=== PATIENT | male | born 1955 | race Caucasian/White ===

== ENCOUNTER 2018-01-13 20:14 | Inpatient (IN) | payer OTHER, MEDICARE ==
[2018-01-13 20:50] LABS: EOS % 2.9 % (0-4.5); HEMATOCRIT 41.3 % (35.4-49); HEMOGLOBIN 14.1 GM/dl (11.7-16.9); LYMPH % 29.4 % (8-40); MCH 31.9 pg (25.7-33.7); MCHC 34.2 g/dl (32.0-35.9); MEAN CELL VOLUME 93.5 fl (80-96); MEAN PLT VOLUME 9.3 fl (7.5-11.1); MONO % 10.2 % (3.8-10.2); NEUT % 54.5 % (42.8-82.8); PLATELET COUNT 203 K/MM3 (134-434); RBC 4.41 M/mm3 (4.00-5.60); RDW 12.4 % (11.9-15.9); WHITE BLOOD COUNT 7.4 K/mm3 (4.0-10.8)
[2018-01-13 20:51] VITALS: BMI 37.8
[2018-01-13 20:59] LABS: ACTIVATED PTT 30.8 SECONDS (25.2-36.5)
[2018-01-13 21:01] LABS: ALBUMIN 4.2 g/dl (3.5-5.0); ALK PHOS 68 U/L (32-92); ANION GAP 9 MMOL/L (8-16); BILIRUBIN,TOTAL 0.7 mg/dl (0.2-1.0); BLOOD UREA NITROGEN 21 mg/dl (7-18); CALCIUM 9.2 mg/dl (8.4-10.2); CHLORIDE 104 mmol/L (98-107); CO2 23 mmol/L (22-28); CREATININE 1.1 mg/dl (0.6-1.3); GLUCOSE,RANDOM 111 mg/dl (74-106); MAGNESIUM 1.9 mg/dL (1.8-2.4); SGOT/AST 61 U/L (10-42); SGPT/ALT 110 U/L (10-40); SODIUM 136 mmol/L (136-145); TOT PROT 6.9 g/dl (6.4-8.3)
[2018-01-13 21:04] LABS: INR 1.1 (0.82-1.09); PROTHROMBIN TIME (PATIENT) 12.3 SEC (10.2-13.0)
--- NOTE | 2018-01-13 21:07 | PDOC ---
History of Present Illness <Latonya Fraire - Last Filed: 01/13/18 21:43> - History of Present Illness Initial Comments: 01/13/18 21:01 The patient is a 62 year old male noncompliant with medical care (previously on nitro and other medications he no longer takes) who was sent to the ED from urgent care with an abnormal EKG today. For the past week the patient has been experiencing worsening shortness of breath with yesterday being the worst, stating he couldnt even walk half a block without having to stop and catch his breath. He reports associated lower extremity swelling and diaphoresis when SOB but denies any associated chest pain, headache, or loss of consciousness. He reports he hasnt seen a doctor in many years. He reports recent travel one month ago where he drove down to [place]. Denies fevers, chills, abd pain , n/v, urinary sxs, dizziness, focal weakness or numbness. Allergies: NKDA Social Hx: Former 4 pack/day smoker from early teenager years up until 8 years ago, social drinker. Patient worked on [employer] in his profession and was exposed to carbon tetrachloride and other chemicals. <Rito Mclean - Last Filed: 01/14/18 00:13> - General Chief Complaint: Irregular Heart Beat Stated Complaint: ATRIAL FIBRILLATION Time Seen by Provider: 01/13/18 20:15 Past History <Latonya Fraire - Last Filed: 01/13/18 21:43> - Past Medical History Cardiac Disorders: Yes COPD: No - Suicide/Smoking/Psychosocial Hx Smoking History: Former smoker Have you smoked in the past 12 months: No If you are a former smoker, when did you quit?: 2009 Information on smoking cessation initiated: No Hx Alcohol Use: Yes Drug/Substance Use Hx: No Substance Use Type: None <Rito Mclean - Last Filed: 01/14/18 00:13> - Past Medical History Allergies/Adverse Reactions: Allergies Allergy/AdvReac Type Severity Reaction Status Date / Time No Known Allergies Allergy Verified 01/13/18 20:33 Home Medications: Ambulatory Orders NK [No Known Home Medication] 01/13/18 Review of Systems - Review of Systems Comments:: 01/13/18 21:07 GENERAL/CONSTITUTIONAL: No fever or chills. No weakness. HEAD, EYES, EARS, NOSE AND THROAT: No change in vision. No ear pain or discharge. No sore throat. GASTROINTESTINAL: No nausea, vomiting, diarrhea or constipation. GENITOURINARY: No dysuria, frequency, or change in urination. CARDIOVASCULAR: (+) shortness of breath, lower extremity swelling, diaphoresis. No chest pain. RESPIRATORY: No cough, wheezing, or hemoptysis. MUSCULOSKELETAL: No joint or muscle swelling or pain. No neck or back pain. SKIN: No rash NEUROLOGIC: No headache, vertigo, loss of consciousness, or change in strength/ sensation. ENDOCRINE: No increased thirst. No abnormal weight change. HEMATOLOGIC/LYMPHATIC: No anemia, easy bleeding, or history of blood clots. ALLERGIC/IMMUNOLOGIC: No hives or skin allergy. <Rito Mclean - Last Filed: 01/14/18 00:13> *Physical Exam - Vital Signs Last Vital Signs Temp Pulse Resp BP Pulse Ox 97.6 F 137 H 24 H 128/92 96 01/13/18 20:15 01/13/18 21:37 01/13/18 21:37 01/13/18 21:37 01/13/18 21:37 <JunoLatonya - Last Filed: 01/13/18 21:43> - Vital Signs Last Vital Signs Temp Pulse Resp BP Pulse Ox 97.6 F 146 H 20 164/133 H 98 01/13/18 20:15 01/13/18 20:40 01/13/18 20:40 01/13/18 20:40 01/13/18 20:40 - Physical Exam Comments: 01/13/18 21:07 GENERAL: Awake, alert, and fully oriented, in no acute distress HEAD: No signs of trauma EYES: Sclera anicteric, conjunctiva clear ENT: Oropharynx clear without exudates. Moist mucosa NECK: Normal ROM, supple LUNGS: Breath sounds equal, clear to auscultation bilaterally. No wheezes, and no crackles HEART: tachycardic, irregularly irregular, normal S1 and S2, no murmurs, rubs or gallops ABDOMEN: Soft, nontender, normoactive bowel sounds. No guarding, no rebound. No masses EXTREMITIES: Normal range of motion, 1+ pitting edema to knees, symmetric. No clubbing or cyanosis. No cords, erythema, or tenderness NEUROLOGICAL: Normal speech, cranial nerves intact, negative pronator drift, 5/ 5 strength in all 4 extremities, normal sensation to light touch in all 4 extremities, normal cerebellar exam, normal gait, normal reflexes and tone SKIN: Warm, Dry, normal turgor, no rashes or lesions noted. <Rito Mclean - Last Filed: 01/14/18 00:13> Heart Score/ECG Review #1 01/13/18 21:10 Twelve-lead EKG was performed and reviewed by me. Atrial fibrillation with rapid ventricular response, rate 138. Normal axis. No ST elevations. T wave inversion in leads 3 and aVF. <Rito Mclean - Last Filed: 01/14/18 00:13> ED Treatment Course - LABORATORY CBC & Chemistry Diagram: 01/13/18 20:38 01/13/18 20:34 - ADDITIONAL ORDERS Additional order review: Laboratory Results 01/13/18 01/13/18 01/13/18 20:34 20:34 20:34 PT with INR 12.3 INR 1.10 PTT (Actin FS) 30.8 Sodium 136 Potassium 4.0 Chloride 104 Carbon Dioxide 23 Anion Gap 9 BUN 21 H Creatinine 1.1 Creat Clearance w eGFR > 60 Random Glucose 111 H Calcium 9.2 Magnesium 1.9 Total Bilirubin 0.7 AST 61 H ALT 110 H Alkaline Phosphatase 68 Troponin I < 0.03 Total Protein 6.9 Albumin 4.2 01/13/18 20:38 RBC 4.41 MCV 93.5 MCHC 34.2 RDW 12.4 MPV 9.3 Neutrophils % 54.5 Lymphocytes % 29.4 Monocytes % 10.2 Eosinophils % 2.9 Basophils % 3.0 H - RADIOLOGY Radiograph Interpretation: 01/13/18 21:42 Chest X-ray as reviewed by Dr. Morgan report unremarkable exam. <Latonya Fraire - Last Filed: 01/13/18 21:43> - LABORATORY CBC & Chemistry Diagram: 01/13/18 20:38 01/13/18 20:34 - ADDITIONAL ORDERS Additional order review: 01/13/18 20:38 RBC 4.41 MCV 93.5 MCHC 34.2 RDW 12.4 MPV 9.3 Neutrophils % 54.5 Lymphocytes % 29.4 Monocytes % 10.2 Eosinophils % 2.9 Basophils % 3.0 H - RADIOLOGY Radiology Studies Ordered: Category Date Time Status CHEST X-RAY PORTABLE* [RAD] Stat Radiology 01/13/18 20:17 Completed <Rito Mclean - Last Filed: 01/14/18 00:13> Medical Decision Making - Medical Decision Making 01/13/18 21:11 62yo M with unknown PMH presents to the ED with progressive ARCEO with associated diaphoresis, LE swelling. Vitals remarkable with tachycardia ranging btwn 100- 140s. EKG with new AFib with RVR. DDx includes AF +/- CHF, PE although pt low risk with last travel 1 month ago and driving for 2 hours at a time, vs ACS. Plan -labs -CXR -consider rate control -admit 01/13/18 23:09 W/u reveals BNP 1000 Otherwise labs including trop/dimer negative CXR clear Likely symptomatic Afib Pt given diltiazem 10mg IV with HR down from 140s to 110s -> ordered dilt PO 30mg Case discussed with Dr. Hinkle (cardiology), he recommends anticoagulation with lovenox 1mg/kg Case discussed with Dayna from hospitalist service, pt accepted for admission to Dr. Arango Case discussed in detail with admitting physician including history, physical exam and ancillary studies. Admitting physician has assumed care for the patient, will follow all pending diagnostics and will complete the evaluation and treatment. <Rito Mclean - Last Filed: 01/14/18 00:13> *DC/Admit/Observation/Transfer - Attestations Scribe Attestion: 01/13/18 21:43 Documentation prepared by Latonya Fraire, acting as emergency medical service manager for Rito Mclean MD. <Latonya Fraire - Last Filed: 01/13/18 21:43> - Discharge Dispostion Decision to Admit order: Yes - Attestations Physician Attestion: 01/13/18 23:13 I, Dr. Rito Mclean MD, attest that this document has been prepared under my direction and personally reviewed by me in its entirety. I further attest, that it accurately reflects all work, treatment, procedures and medical decision -making performed by me. <Rito Mclean - Last Filed: 01/14/18 00:13> Diagnosis at time of Disposition: New onset a-fib, CHF (congestive heart failure), ARCEO (dyspnea on exertion) - Discharge Dispostion Condition at time of disposition: Good
[2018-01-13 22:16] LABS: URINE APPEARANCE Clear; URINE BILIRUBIN Negative (NEGATIVE); URINE COLOR Yellow; URINE GLUCOSE (UA) Negative (NEGATIVE); URINE KETONE Negative (NEGATIVE); URINE LEUK ESTERASE Negative (NEGATIVE); URINE NITRITE Negative (NEGATIVE); URINE PROTEIN Negative (NEGATIVE); URINE UROBILINOGEN 0.2 (0.2-1.0)
[2018-01-13] MEDS ORDERED: dilTIAZem HCL 50 MG/10 ML - 10 ML VIAL IVPUSH ONE (22:49)
[2018-01-13] MEDS ORDERED: dilTIAZem HCL 50 MG/10 ML - 10 ML VIAL ONE (22:54)
[2018-01-13] MEDS ORDERED: dilTIAZem HCL 30 MG TABLET (FP) PO ONE (23:08)
[2018-01-13] MEDS ORDERED: ENOXAPARIN NA (PORCINE) 30 MG/0.3 ML DISP.SYRIN SQ ONE (23:12)
[2018-01-13] MEDS ORDERED: dilTIAZem HCL 30 MG TABLET (FP) ONE (23:12)
[2018-01-13] MEDS ORDERED: ENOXAPARIN NA (PORCINE) 100 MG/1 ML DISP.SYRIN SQ ONE (23:12)
[2018-01-13] MEDS ORDERED: ENOXAPARIN NA (PORCINE) 120 MG/0.8 ML DISP.SYRIN SQ SCH (23:15)
--- NOTE | 2018-01-14 00:47 | HP ---
CHIEF COMPLAINT: SOB and abnormal ECG PCP: None HISTORY OF PRESENT ILLNESS: 62 year old male presented to the ED with increasing SOB over the past week and irregular ECG at urgent care. Patient reports he has not been feeling well over the past 2 weeks, with a sore throat, ear pain, and cough. One week ago, he noticed he was becoming more short of breath when walking even very short distances. He also noticed he has been sweating more and has slight swelling of his ankles at the end of the day over the past several weeks. He denies fevers, dizziness, light headedness, syncope, chest pain, palpitations, no n/v/d. He has not seen a doctor in several years and does not take any medication, and his encouraged him to go to urgent care. He was sent to the ED from urgent care after his showed atrial fibrillation. Patient was on a one month vacation to [place] in October where he reports gaining 20 lbs. He went to a [facility]oop application developer in [place] (cannot remember the name ) 6 years ago after he had experienced intermittent chest pain. He was given a full cardiac work up, including a stress test, and he was told "the wiring in his heart is irregular," and that they could do surgery, or they he could take a prescription medication. He took the medication for a few months, then stopped taking it. 15 years ago, he reports going to the cardiac laboratory director where they planned to place a stent, but was told his heart looked fine and the stent was not placed. He reports his BP has always been low. He loves to eat "trash" such as cold cuts, cheese, chicken wings and hamburgers. At home he takes several supplements including vitamin E, C, multivitamin, CoQ10, fish oil, and a baby aspirin. He takes about 4 Advils a night for joint pain. Upon admission to the ED, his pulse ranged from the 110s-140s. ECG +A-fib, CXR unremakable. He was given Cardizem and Lovenox. Patient reports he is feeling fine, but he was also feeling fine when he came to the ED. Recent Travel: [place] 1 month ago PAST MEDICAL HISTORY: Staph infection from axillary skin tag removal 20 years ago, hospitalized for one month PAST SURGICAL HISTORY: Shoulder surgery x 3 Elbow surgery Knee surgery b/l Tonsillectomy Tppendectomy Social History: Works repairing and installing [employer] Smoking: Former heavy smoker (up to 4 ppd), quit 8 years ago Alcohol: 1 bottle of [place] a night Drugs: Denies Family History: Mother: Multiple sclerosis Father: Suicide Allergies No Known Allergies Allergy (Verified 01/13/18 20:33) HOME MEDICATIONS: Home Medications Medication Instructions Recorded NK [No Known Home Medication] 01/13/18 REVIEW OF SYSTEMS CONSTITUTIONAL: (+) Diaphoresis, weight gain of 20 lbs over the past 3 months when he was on vacation in [place] for one month Absent: fever, chills, generalized weakness, malaise, loss of appetite HEENT: (+) nasal congestion, throat pain Absent: rhinorrhea, throat swelling, difficulty swallowing, mouth swelling, ear pain, eye pain, visual changes CARDIOVASCULAR: (+) peripheral edema Absent: chest pain, syncope, palpitations, irregular heart rate, lightheadedness RESPIRATORY: (+) shortness of breath, dyspnea with exertion Absent: cough, orthopnea, wheezing, stridor, hemoptysis GASTROINTESTINAL: Absent: abdominal pain, abdominal distension, nausea, vomiting, diarrhea, constipation, melena, hematochezia GENITOURINARY: (+) urinary frequency Absent: dysuria, urgency, hesitancy, hematuria, flank pain, genital pain MUSCULOSKELETAL: (+) arthralgia Absent: myalgia, joint swelling, back pain, neck pain SKIN: (+) lower legs appear more reddish/pinkish Absent: rash, itching, pallor HEMATOLOGIC/IMMUNOLOGIC: Absent: easy bleeding, easy bruising, lymphadenopathy, frequent infections ENDOCRINE: Absent: unexplained weight gain, unexplained weight loss, heat intolerance, cold intolerance NEUROLOGIC: (+) Carpal tunnel pain Absent: headache, focal weakness or paresthesias, dizziness, unsteady gait, seizure, mental status changes, bladder or bowel incontinence PSYCHIATRIC: Absent: anxiety, depression, suicidal or homicidal ideation, hallucinations. PHYSICAL EXAMINATION Vital Signs - 24 hr 01/13/18 01/13/18 01/13/18 20:15 20:40 21:10 Temperature 97.6 F Pulse Rate 110 H Pulse Rate [ 146 H 134 H Apical] Respiratory 20 20 20 Rate Blood Pressure 148/9 L Blood Pressure 164/133 H 140/95 [Right Arm] O2 Sat by Pulse 98 98 97 Oximetry (%) 01/13/18 01/13/18 01/13/18 21:37 22:52 23:36 Temperature Pulse Rate Pulse Rate [ 137 H 132 H 118 H Apical] Respiratory 24 H 20 20 Rate Blood Pressure Blood Pressure 128/92 130/89 108/61 [Right Arm] O2 Sat by Pulse 96 98 98 Oximetry (%) 01/14/18 00:37 Temperature 97.6 F Pulse Rate 120 H Pulse Rate [ Apical] Respiratory 20 Rate Blood Pressure 132/108 H Blood Pressure [Right Arm] O2 Sat by Pulse 98 Oximetry (%) GENERAL: Awake, alert, and fully oriented, in no acute distress. HEAD: Normal with no signs of trauma. EYES: Pupils equal, round and reactive to light, extraocular movements intact, sclera anicteric, conjunctiva clear. No lid lag. EARS, NOSE, THROAT: missing teeth, nares patent, oropharynx clear without exudates. Moist mucous membranes. NECK: Normal range of motion, supple without lymphadenopathy, JVD, or masses. LUNGS: Breath sounds equal, clear to auscultation bilaterally. No wheezes, and no crackles. No accessory muscle use. HEART: Irregularly irregular, rapid rate, without murmur, rub or gallop. ABDOMEN: Obese, soft, nontender, not distended, normoactive bowel sounds, no guarding, no rebound, no masses. No hepatomegaly or splenomegaly. MUSCULOSKELETAL: Normal range of motion at all joints. No bony deformities or tenderness. No CVA tenderness. UPPER EXTREMITIES: 2+ pulses, warm, well-perfused. No cyanosis. No clubbing. No peripheral edema. LOWER EXTREMITIES: Trace edema to b/l LE 2+ pulses, warm, well-perfused. No calf tenderness NEUROLOGICAL: No facial droop, tongue midline, normal speech. Normal gait. PSYCHIATRIC: Cooperative. Good eye contact. Appropriate mood and affect. SKIN: Warm, dry, normal turgor, no rashes or lesions noted, normal capillary refill. Laboratory Results - last 24 hr 01/13/18 01/13/18 01/13/18 20:34 20:34 20:34 WBC RBC Hgb Hct MCV MCH MCHC RDW Plt Count MPV Absolute Neuts (auto) Neutrophils % Lymphocytes % Monocytes % Eosinophils % Basophils % PT with INR 12.3 INR 1.10 PTT (Actin FS) 30.8 D-Dimer Sodium 136 Potassium 4.0 Chloride 104 Carbon Dioxide 23 Anion Gap 9 BUN 21 H Creatinine 1.1 Creat Clearance w eGFR > 60 Random Glucose 111 H Calcium 9.2 Magnesium 1.9 Total Bilirubin 0.7 AST 61 H ALT 110 H Alkaline Phosphatase 68 Troponin I B-Natriuretic Peptide 1082.8 H Total Protein 6.9 Albumin 4.2 TSH 1.41 Urine Color Urine Appearance Urine pH Ur Specific [place] Urine Protein Urine Glucose (UA) Urine Ketones Urine Blood Urine Nitrite Urine Bilirubin Urine Urobilinogen Ur Leukocyte Esterase Blood Type Antibody Screen 01/13/18 01/13/18 01/13/18 20:34 20:34 20:34 WBC RBC Hgb Hct MCV MCH MCHC RDW Plt Count MPV Absolute Neuts (auto) Neutrophils % Lymphocytes % Monocytes % Eosinophils % Basophils % PT with INR INR PTT (Actin FS) D-Dimer 329 Sodium Potassium Chloride Carbon Dioxide Anion Gap BUN Creatinine Creat Clearance w eGFR Random Glucose Calcium Magnesium Total Bilirubin AST ALT Alkaline Phosphatase Troponin I < 0.03 B-Natriuretic Peptide Total Protein Albumin TSH Urine Color Urine Appearance Urine pH Ur Specific [place] Urine Protein Urine Glucose (UA) Urine Ketones Urine Blood Urine Nitrite Urine Bilirubin Urine Urobilinogen Ur Leukocyte Esterase Blood Type O POSITIVE Antibody Screen Negative 01/13/18 01/13/18 01/13/18 20:38 21:00 21:30 WBC 7.4 RBC 4.41 Hgb 14.1 Hct 41.3 MCV 93.5 MCH 31.9 MCHC 34.2 RDW 12.4 Plt Count 203 MPV 9.3 Absolute Neuts (auto) 4.0 Neutrophils % 54.5 Lymphocytes % 29.4 Monocytes % 10.2 Eosinophils % 2.9 Basophils % 3.0 H PT with INR INR PTT (Actin FS) D-Dimer Sodium Potassium Chloride Carbon Dioxide Anion Gap BUN Creatinine Creat Clearance w eGFR Random Glucose Calcium Magnesium Total Bilirubin AST ALT Alkaline Phosphatase Troponin I B-Natriuretic Peptide Total Protein Albumin TSH Urine Color Yellow Urine Appearance Clear Urine pH 6.0 Ur Specific [place] 1.020 Urine Protein Negative Urine Glucose (UA) Negative Urine Ketones Negative Urine Blood Negative Urine Nitrite Negative Urine Bilirubin Negative Urine Urobilinogen 0.2 Ur Leukocyte Esterase Negative Blood Type O POSITIVE Antibody Screen ECG A-fib Vent rate [address] elevations ASSESSMENT/PLAN: 62 year old male presented to the ED with increasing SOB over the past week and irregular ECG at urgent care. Patient found to have new-onset a-fib and admitted for further cardiac work up. A-Fib -New onset -Telemetry monitoring -Start Cardizem 30 mq q 6 hrs and titrate as necessary -Started on Lovenox 130 mg SQ q 12 hrs -Echo ordered -Cardiac consult ordered Heart Failure -BNP elevated 1082 -CXR unremarkable for acute process -Troponin #1 negative, #2 and #3 pending -Lipid panel (requested by ) pending Elevated LFTs -AST 61, ALT 110 -Patient drinks about one bottle of wine a night -Repeat CMP tomorrow FEN -PO intake adequate -Electrolytes replete as indicated -Regular diet DVT Prophylaxis -TEDs -Started on Lovenox Dispo: pt currently requires further inpatient care. FULL CODE Visit type - Emergency Visit Emergency Visit: Yes ED Registration Date: 01/13/18 Care time: The patient presented to the Emergency Department on the above date and was hospitalized for further evaluation of their emergent condition. - New Patient This patient is new to me today: Yes Date on this admission: 01/14/18 - Critical Care Critical Care patient: No
[2018-01-14] MEDS ORDERED: dilTIAZem HCL 30 MG TABLET (FP) PO ONE (02:17)
[2018-01-14 05:14] LABS: ALBUMIN 3.8 g/dl (3.4-5.0); ALK PHOS 76 U/L (45-117); ANION GAP 6 MMOL/L (8-16); BILIRUBIN,TOTAL 0.6 mg/dL (0.2-1); BLOOD UREA NITROGEN 18 mg/dL (7-18); CALCIUM 8.6 mg/dL (8.5-10.1); CHLORIDE 106 mmol/L (98-107); CO2 27 mmol/L (21-32); GLUCOSE,RANDOM 105 mg/dL (74-106); POTASSIUM 4.2 mmol/L (3.5-5.1); SGOT/AST 66 U/L (15-37); SGPT/ALT 112 U/L (13-61); SODIUM 139 mmol/L (136-145); TOT PROT 6.6 g/dl (6.4-8.2)
[2018-01-14] MEDS ORDERED: dilTIAZem HCL 30 MG TABLET (FP) PO SCH ×2 (06:00→14:00)
--- NOTE | 2018-01-14 09:47 | CON.CARD ---
Consult Consult Specialty:: Cardiology Referred by:: Hospitalist Reason for Consultation:: Cardiac evaluation - History of Present Illness Chief Complaint: SOB History of Present Illness: Patient is a 62 year old male with underlying history of probable HTN (has not been on any medication as he has been noncompliant with meds) and history of probable AF 6 years ago (but again does not take any medication at this time). He was seen by a chemistry quality control technician affiliated with [facility] in [facility] and was told to take a pill when he develops arrhythmia, but he did not follow with his instruction. He began to have shortness of breath past few days which got worse and he went to urgent care center at the advice of his family. He was told of AF and was referred to be hospitalized. He also complains of productive cough and complains of shortness of breath when lying down. He denies chest pain. Denies paroxysmal nocturnal dyspnea or orthopnea. Denies nausea, vomiting , diarrhea or abdominal pain. Denies fever or chills. Denies headache or lightheadedness. He drinks ETOH (mostly wine) almost everyday. - History Source History Provided By: Patient, Medical Record Limitations to Obtaining History: No Limitations - Past Medical History Cardio/Vascular: Yes: AFIB, HTN - Past Surgical History Past Surgical History: Yes: Appendectomy, Joint Replacement, Tonsillectomy - Alcohol/Substance Use Hx Alcohol Use: Yes History of Substance Use: reports: None - Smoking History Smoking history: Former smoker Have you smoked in the past 12 months: No If you are a former smoker, when did you quit?: 2009 Home Medications - Allergies Allergies/Adverse Reactions: Allergies Allergy/AdvReac Type Severity Reaction Status Date / Time No Known Allergies Allergy Verified 01/13/18 20:33 - Home Medications Home Medications: Ambulatory Orders NK [No Known Home Medication] 01/13/18 Family Disease History - Family Disease History Family Disease History: Heart Disease: Grandparent Review of Systems - Review of Systems Constitutional: denies: Chills, Fever Cardiovascular: reports: Palpitations, Shortness of Breath. denies: Chest Pain Respiratory: reports: Cough, SOB, SOB on Exertion. denies: Hemoptysis, Orthopnea, PND Gastrointestinal: denies: Abdominal Pain, Constipation, Diarrhea, Melena, Nausea , Rectal Bleeding, Vomiting Genitourinary: denies: Dysuria, Hematuria Musculoskeletal: denies: Back Pain, Joint Pain Neurological: denies: Confusion, Dizziness, Headache, Seizure, Syncope, Weakness Vital Signs: Vital Signs Temperature 97.5 F L 01/14/18 06:00 Pulse Rate 96 H 01/14/18 06:00 Respiratory Rate 18 01/14/18 09:00 Blood Pressure 98/57 L 01/14/18 06:00 O2 Sat by Pulse Oximetry (%) 96 01/14/18 09:00 Eyes: Yes: PERRL HENT: Yes: Atraumatic Neck: Yes: Supple Respiratory: Yes: CTA Bilaterally Gastrointestinal: Yes: Normal Bowel Sounds, Soft. No: Tenderness Cardiovascular: Yes: Pulse Irregular JVD: No Carotid Bruit: No PMI: Non-Displaced Heart Sounds: Yes: S1, S2 Murmur: No: Systolic Murmur, Diastolic Murmur Edema: No - Other Data Labs, Other Data: CBC, BMP 01/13/18 20:38 01/14/18 02:00 INR, PTT INR 1.10 (0.82-1.09) 01/13/18 20:34 Troponin, BNP 01/13/18 01/13/18 01/14/18 20:34 20:34 02:00 Troponin I < 0.03 < 0.02 B-Natriuretic Peptide 1082.8 H Laboratory Results - last 24 hr 01/13/18 01/13/18 01/13/18 20:34 20:34 20:34 WBC RBC Hgb Hct MCV MCH MCHC RDW Plt Count MPV Absolute Neuts (auto) Neutrophils % Lymphocytes % Monocytes % Eosinophils % Basophils % PT with INR 12.3 INR 1.10 PTT (Actin FS) 30.8 D-Dimer Sodium 136 Potassium 4.0 Chloride 104 Carbon Dioxide 23 Anion Gap 9 BUN 21 H Creatinine 1.1 Creat Clearance w eGFR > 60 Random Glucose 111 H Calcium 9.2 Magnesium 1.9 Total Bilirubin 0.7 AST 61 H ALT 110 H Alkaline Phosphatase 68 Troponin I B-Natriuretic Peptide 1082.8 H Total Protein 6.9 Albumin 4.2 TSH 1.41 Urine Color Urine Appearance Urine pH Ur Specific [place] Urine Protein Urine Glucose (UA) Urine Ketones Urine Blood Urine Nitrite Urine Bilirubin Urine Urobilinogen Ur Leukocyte Esterase Blood Type Antibody Screen 01/13/18 01/13/18 01/13/18 20:38 21:00 21:30 WBC 7.4 RBC 4.41 Hgb 14.1 Hct 41.3 MCV 93.5 MCH 31.9 MCHC 34.2 RDW 12.4 Plt Count 203 MPV 9.3 Absolute Neuts (auto) 4.0 Neutrophils % 54.5 Lymphocytes % 29.4 Monocytes % 10.2 Eosinophils % 2.9 Basophils % 3.0 H PT with INR INR PTT (Actin FS) D-Dimer Sodium Potassium Chloride Carbon Dioxide Anion Gap BUN Creatinine Creat Clearance w eGFR Random Glucose Calcium Magnesium Total Bilirubin AST ALT Alkaline Phosphatase Troponin I B-Natriuretic Peptide Total Protein Albumin TSH Urine Color Yellow Urine Appearance Clear Urine pH 6.0 Ur Specific [place] 1.020 Urine Protein Negative Urine Glucose (UA) Negative Urine Ketones Negative Urine Blood Negative Urine Nitrite Negative Urine Bilirubin Negative Urine Urobilinogen 0.2 Ur Leukocyte Esterase Negative Blood Type O POSITIVE Antibody Screen 01/14/18 01/14/18 02:00 02:00 WBC RBC Hgb Hct MCV MCH MCHC RDW Plt Count MPV Absolute Neuts (auto) Neutrophils % Lymphocytes % Monocytes % Eosinophils % Basophils % PT with INR INR PTT (Actin FS) D-Dimer Sodium 139 Potassium 4.2 Chloride 106 Carbon Dioxide 27 Anion Gap 6 L BUN 18 Creatinine 1.0 Creat Clearance w eGFR > 60 Random Glucose 105 Calcium 8.6 Magnesium Total Bilirubin 0.6 AST 66 H ALT 112 H Alkaline Phosphatase 76 Troponin I < 0.02 B-Natriuretic Peptide Total Protein 6.6 Albumin 3.8 TSH Urine Color Urine Appearance Urine pH Ur Specific [place] Urine Protein Urine Glucose (UA) Urine Ketones Urine Blood Urine Nitrite Urine Bilirubin Urine Urobilinogen Ur Leukocyte Esterase Blood Type Antibody Screen AF with RVR Echo: Pending Imaging - Results Chest X-ray: Report Reviewed (Unremarkable) EKG: Report Reviewed Problem List - Problems (1) Atrial fibrillation with rapid ventricular response Code(s): I48.91 - UNSPECIFIED ATRIAL FIBRILLATION (2) HTN (hypertension) Code(s): I10 - ESSENTIAL (PRIMARY) HYPERTENSION (3) CHF (congestive heart failure) Code(s): I50.9 - HEART FAILURE, UNSPECIFIED (4) ARCEO (dyspnea on exertion) Code(s): R06.09 - OTHER FORMS OF DYSPNEA Assessment/Plan 1. AF (paroxysmal) with RVR [id number] score currently 1 or 2 2. HTN - currently low BP 3. Noncompliant with medical therapy in the past 4. SOB/dyspnea/? orthopnea due to above, rule out LV systolic dysfunction with long history of ETOH use PLAN: 1. Discontinue Lovenox and instead give Eliquis 5 mg BID 2. Add beta kasey - Metoprolol 50 mg BID in addition to Cardizem for rate control BP permitting 3. Transthoracic echocardiography to assess LV/RV and valvular function 4. If remains in AF, may consider antiarrhythmic (pending assessment of LV function) +/- synchronized cardioversion +/- CHRISTOPHER Further plans are to follow Gurjit Cesar MD
[2018-01-14] MEDS ORDERED: dilTIAZem HCL 50 MG/10 ML - 10 ML VIAL IVPUSH ONE (09:58)
[2018-01-14] MEDS ORDERED: ENOXAPARIN 100 MG, ENOXAPARIN 30 MG SQ SCH (10:00)
[2018-01-14] MEDS ORDERED: ENOXAPARIN NA (PORCINE) 120 MG/0.8 ML DISP.SYRIN SQ SCH (10:00)
[2018-01-14] MEDS: METOPROLOL TARTRATE 50 MG TABLET (FP) PO SCH ×2 (10:33→21:07)
[2018-01-14] MEDS: APIXABAN 5 MG TABLET PO SCH ×2 (10:33→21:04)
--- NOTE | 2018-01-14 12:10 | EKG ---
Test Reason : Blood Pressure : / mmHG Vent. Rate : 138 BPM Atrial Rate : 163 BPM P-R Int : 000 ms QRS Dur : 090 ms QT Int : 302 ms P-R-T Axes : 000 027 -06 degrees QTc Int : 457 ms ATRIAL FIBRILLATION WITH RAPID VENTRICULAR RESPONSE ABNORMAL ECG Confirmed by MD MARISA, LISA ([id number]) on 01/14/2018 12:09:53 PM Referred By: DEANDRE Confirmed By:LISA CUNNINGHAM MD
--- NOTE | 2018-01-14 15:32 | PN ---
Physical Exam: SUBJECTIVE: Patient seen and examined; no events from overnight. Cardio saw and changed him to eliquis, etc. Doing well but still elevated HR this afternoon. Will discuss with cardiology potentially increasing frequency of cardizem. Echo pending. No s/s CHF. Continue to monitor on telemetry. 10 sys ROS done and negative unless mentioned above. OBJECTIVE: Vital Signs Period Temp Pulse Resp BP Sys/Quintero Pulse Ox Last 24 Hr 97.5 F-98.8 F 96-146 16-24 98-164/9-133 93-98 GENERAL: The patient is awake, alert, and fully oriented, in no acute distress. HEAD: Normal with no signs of trauma. EYES: PERRL, extraocular movements intact, sclera anicteric, conjunctiva clear. No ptosis. ENT: Ears normal, nares patent, oropharynx clear NECK: Trachea midline, full range of motion, supple. LUNGS: Breath sounds equal, clear to auscultation bilaterally HEART: fast HR that is irregularly irregular, S1, S2 without murmur, rub or gallop. ABDOMEN: Soft, nontender, nondistended, normoactive bowel sounds EXTREMITIES: 2+ pulses, warm, well-perfused, no edema. NEUROLOGICAL: Cranial nerves II through XII grossly intact. PSYCH: Normal mood, normal affect. No agitation consistent with WD SKIN: Warm, dry, normal turgor, no rashes or lesions noted Laboratory Results - last 24 hr 01/13/18 01/13/18 01/13/18 20:34 20:34 20:34 WBC RBC Hgb Hct MCV MCH MCHC RDW Plt Count MPV Absolute Neuts (auto) Neutrophils % Lymphocytes % Monocytes % Eosinophils % Basophils % PT with INR 12.3 INR 1.10 PTT (Actin FS) 30.8 D-Dimer Sodium 136 Potassium 4.0 Chloride 104 Carbon Dioxide 23 Anion Gap 9 BUN 21 H Creatinine 1.1 Creat Clearance w eGFR > 60 Random Glucose 111 H Calcium 9.2 Magnesium 1.9 Total Bilirubin 0.7 AST 61 H ALT 110 H Alkaline Phosphatase 68 Troponin I B-Natriuretic Peptide 1082.8 H Total Protein 6.9 Albumin 4.2 TSH 1.41 Urine Color Urine Appearance Urine pH Ur Specific [place] Urine Protein Urine Glucose (UA) Urine Ketones Urine Blood Urine Nitrite Urine Bilirubin Urine Urobilinogen Ur Leukocyte Esterase Blood Type Antibody Screen 01/13/18 01/13/18 01/13/18 20:34 20:34 20:34 WBC RBC Hgb Hct MCV MCH MCHC RDW Plt Count MPV Absolute Neuts (auto) Neutrophils % Lymphocytes % Monocytes % Eosinophils % Basophils % PT with INR INR PTT (Actin FS) D-Dimer 329 Sodium Potassium Chloride Carbon Dioxide Anion Gap BUN Creatinine Creat Clearance w eGFR Random Glucose Calcium Magnesium Total Bilirubin AST ALT Alkaline Phosphatase Troponin I < 0.03 B-Natriuretic Peptide Total Protein Albumin TSH Urine Color Urine Appearance Urine pH Ur Specific [place] Urine Protein Urine Glucose (UA) Urine Ketones Urine Blood Urine Nitrite Urine Bilirubin Urine Urobilinogen Ur Leukocyte Esterase Blood Type O POSITIVE Antibody Screen Negative 01/13/18 01/13/18 01/13/18 20:38 21:00 21:30 WBC 7.4 RBC 4.41 Hgb 14.1 Hct 41.3 MCV 93.5 MCH 31.9 MCHC 34.2 RDW 12.4 Plt Count 203 MPV 9.3 Absolute Neuts (auto) 4.0 Neutrophils % 54.5 Lymphocytes % 29.4 Monocytes % 10.2 Eosinophils % 2.9 Basophils % 3.0 H PT with INR INR PTT (Actin FS) D-Dimer Sodium Potassium Chloride Carbon Dioxide Anion Gap BUN Creatinine Creat Clearance w eGFR Random Glucose Calcium Magnesium Total Bilirubin AST ALT Alkaline Phosphatase Troponin I B-Natriuretic Peptide Total Protein Albumin TSH Urine Color Yellow Urine Appearance Clear Urine pH 6.0 Ur Specific [place] 1.020 Urine Protein Negative Urine Glucose (UA) Negative Urine Ketones Negative Urine Blood Negative Urine Nitrite Negative Urine Bilirubin Negative Urine Urobilinogen 0.2 Ur Leukocyte Esterase Negative Blood Type O POSITIVE Antibody Screen 01/14/18 01/14/18 02:00 02:00 WBC RBC Hgb Hct MCV MCH MCHC RDW Plt Count MPV Absolute Neuts (auto) Neutrophils % Lymphocytes % Monocytes % Eosinophils % Basophils % PT with INR INR PTT (Actin FS) D-Dimer Sodium 139 Potassium 4.2 Chloride 106 Carbon Dioxide 27 Anion Gap 6 L BUN 18 Creatinine 1.0 Creat Clearance w eGFR > 60 Random Glucose 105 Calcium 8.6 Magnesium Total Bilirubin 0.6 AST 66 H ALT 112 H Alkaline Phosphatase 76 Troponin I < 0.02 B-Natriuretic Peptide Total Protein 6.6 Albumin 3.8 TSH Urine Color Urine Appearance Urine pH Ur Specific [place] Urine Protein Urine Glucose (UA) Urine Ketones Urine Blood Urine Nitrite Urine Bilirubin Urine Urobilinogen Ur Leukocyte Esterase Blood Type Antibody Screen Active Medications Generic Name Dose Route Start Last Admin Trade Name Misaelq PRN Reason Stop Dose Admin Apixaban 5 mg 01/14/18 10:00 01/14/18 10:33 Eliquis - PO 5 mg BID LISETTE Administration Diltiazem HCl 30 mg 01/14/18 14:00 Cardizem - PO TID LISETTE Metoprolol Tartrate 50 mg 01/14/18 10:00 01/14/18 10:33 Lopressor - PO 50 mg BID LISETTE Administration ASSESSMENT/PLAN: 1) Atrial Fibrillation with RVR -HR improved but still >100; consider changing cardizem to Q6H; will discuss with CV -Continue eliquis; no bleeding -Continue Metoprolol 50mg BID -Further management regarding cardioversion, etc. per cardio. Continue telemetry. -Followup on echo regarding EF and valvular abnormalities; adjust meds as needed based on this study 2) Elevated BNP -Clinically not in CHF; CXR clear on admission. -Likely rate related from #1; monitor respiratory status. Followup on echo 3) EtOH use -No reports of WD sx; check for dilated CM on echo -Encouraged reasonable use vs. abstaining 4) HTN -Continue current plan; keep <160 inpatient. Once his final regimine is elucidated with Afib management can taper BP meds. Cardio following. 5) Noncompliance with tx in past Full Code If stable can likely be DC in the next day or so Visit type - Emergency Visit Emergency Visit: No - New Patient This patient is new to me today: Yes Date on this admission: 01/14/18 - Critical Care Critical Care patient: No
--- NOTE | 2018-01-14 16:17 | ECHO ---
Name: CAMDEBORAH Exam:Adult Echocardiogram Study Date: 01/14/2018 02:58 PM Age: 62 yrs Reason For Study: New atrial fibrillation Height: 74 in Weight: 295 lb BSA: 2.6 m2 MMode/2D Measurements & Calculations IVSd: 0.93 cm Ao root diam: 3.0 cm LVIDd: 5.5 cm LA dimension: 3.9 cm LVIDs: 4.1 cm LVPWd: 0.87 cm EDV(Teich): 150.5 ml ESV(Teich): 72.4 ml Doppler Measurements & Calculations MR max laurent: 213.9 cm/sec TR max laurent: 189.7 cm/sec MR max P.4 mmHg TR max P.4 mmHg Procedure A complete two-dimensional transthoracic echocardiogram was performed (2D, M-mode, Doppler and color flow Doppler). The study was technically limited with all images being suboptimal in quality. Left Ventricle The left ventricular size, thickness and function are normal. Ejection Fraction = 55%. Left Ventricul ar Filling pattern is normal for age. Right Ventricle The right ventricle is normal in size and function. Atria The left atrium is mildly dilated. Right atrium not well visualized. Mitral Valve There is mild mitral annular calcification. There is no mitral regurgitation noted. Tricuspid Valve The tricuspid valve is not well visualized, but is grossly normal. Aortic Valve There is mild aortic sclerosis.;. No hemodynamically significant valvular aortic stenosis. Pulmonic Valve The pulmonic valve is not well visualized. Great Vessels The aortic root is normal size. Pericardium/Pleura There is no pericardial effusion. Interpretation Summary The study was technically limited with all images being suboptimal in quality. The left ventricular size, thickness and function are normal Left Ventricular Filling pattern is normal for age. The right ventricle is normal in size and function. The left atrium is mildly dilated. There is mild mitral annular calcification. There is mild aortic sclerosis.; No hemodynamically significant valvular aortic stenosis. Slick Villalobos 01/14/2018 04:17 PM
[2018-01-14] MEDS: dilTIAZem HCL 30 MG TABLET (FP) PO SCH (18:17)
[2018-01-15] MEDS: dilTIAZem HCL 30 MG TABLET (FP) PO SCH ×4 (05:54→17:15)
[2018-01-15 08:25] LABS: HEMATOCRIT 42.9 % (35.4-49); HEMOGLOBIN 14.2 GM/dl (11.7-16.9); MCH 31.2 pg (25.7-33.7); MCHC 33.1 g/dl (32.0-35.9); MEAN CELL VOLUME 94.1 fl (80-96); MEAN PLT VOLUME 9.2 fl (7.5-11.1); PLATELET COUNT 221 K/MM3 (134-434); RBC 4.56 M/mm3 (4.00-5.60); RDW 12.9 % (11.9-15.9); WHITE BLOOD COUNT 6.9 K/mm3 (4.0-10.8)
--- NOTE | 2018-01-15 08:28 | PN ---
Physical Exam: SUBJECTIVE: Patient seen and examined, sitting in bedside, reports chest pressure and shortness of breath has improved, wants to go home . OBJECTIVE: Patient is a 62 y/o obese male, that was admitted from the emergency department for new onset rapid afib. Vital Signs Period Temp Pulse Resp BP Sys/Quintero Pulse Ox Last 24 Hr 98.2 F-98.8 F 103-128 16-19 99-139/70-93 95-97 GENERAL: The patient is awake, alert, and fully oriented, in no acute distress. HEAD: Normal with no signs of trauma. EYES: PERRL, extraocular movements intact, sclera anicteric, conjunctiva clear. No ptosis. ENT: Ears normal, nares patent, oropharynx clear without exudates, moist mucous membranes. NECK: Trachea midline, full range of motion, supple. LUNGS: Breath sounds equal, clear to auscultation bilaterally, no wheezes, no crackles, no accessory muscle use. HEART: irregular rate and rhythm, S1, S2 without murmur, rub or gallop. ABDOMEN: Soft, nontender, nondistended, normoactive bowel sounds, no guarding, no rebound, no hepatosplenomegaly, no masses. EXTREMITIES: 2+ pulses, warm, well-perfused, no edema. NEUROLOGICAL: Cranial nerves II through XII grossly intact. Normal speech, gait not observed. PSYCH: Normal mood, normal affect. SKIN: Warm, dry, normal turgor, no rashes or lesions noted Laboratory Results - last 24 hr 01/14/18 18:10 Troponin I < 0.03 Active Medications Generic Name Dose Route Start Last Admin Trade Name Misaelq PRN Reason Stop Dose Admin Apixaban 5 mg 01/14/18 10:00 01/14/18 21:04 Eliquis - PO 5 mg BID LISETTE Administration Diltiazem HCl 30 mg 01/14/18 16:30 01/15/18 05:54 Cardizem - PO 30 mg Q6HPO LISETTE Administration Metoprolol Tartrate 50 mg 01/14/18 10:00 01/14/18 21:07 Lopressor - PO 50 mg BID LISETTE Administration ASSESSMENT/PLAN: 1) Atrial Fibrillation with RVR -HR remains elevated, 110-120's, lopressor increased to 75mg bid will continue cardizem to Q6H -Continue eliquis; no bleeding - echo 01/14/18 lv wnl, no aortic stenosis -Further management regarding cardioversion, etc. per cardio. Continue telemetry. 2) Elevated BNP -Clinically not in CHF; CXR clear on admission. -Likely rate related from #1; monitor respiratory status. 3) EtOH use -no signs/symptoms of withdrawl -Encouraged reasonable use vs. abstaining 4) HTN -Continue current plan; keep <160 inpatient. Once his final regimine is elucidated with Afib management can taper BP meds. Cardio following. 5) Noncompliance with tx in past Full Code If stable can likely be DC tomorrow. Visit type - Emergency Visit Emergency Visit: Yes ED Registration Date: 01/13/18 Care time: The patient presented to the Emergency Department on the above date and was hospitalized for further evaluation of their emergent condition. - New Patient This patient is new to me today: Yes Date on this admission: 01/15/18 - Critical Care Critical Care patient: No - Discharge Referral Referred to [facility] No
[2018-01-15] MEDS: METOPROLOL TARTRATE 50 MG TABLET (FP) PO SCH ×2 (09:38→21:21)
[2018-01-15] MEDS: APIXABAN 5 MG TABLET PO SCH ×2 (09:38→21:22)
[2018-01-15] MEDS ORDERED: METOPROLOL TARTRATE 25 MG TABLET (FP) PO ONE (10:15)
[2018-01-15 11:20] LABS: CHOLESTEROL 226 mg/dl; HDL CHOLESTEROL 40 mg/dl (29-89); LDL CHOLESTEROL (ONLY DFH) 132 mg/dl; TRIGLYCERIDES 271 mg/dl (35-160)
--- NOTE | 2018-01-15 18:33 | PN ---
Progress Note, Physician History of Present Illness: Chest pressure and shortness of breath with exertion has improved, wants to go home - Current Medication List Current Medications: Active Medications Apixaban (Eliquis -) 5 mg PO BID [facility] Last Admin: 01/15/18 09:38 Dose: 5 mg Diltiazem HCl (Cardizem -) 30 mg PO Q6HPO [facility] Last Admin: 01/15/18 17:15 Dose: 30 mg Metoprolol Tartrate (Lopressor -) 75 mg PO BID [facility] - Objective Vital Signs: Vital Signs Temperature 97.9 F 01/15/18 14:25 Pulse Rate 76 01/15/18 14:25 Respiratory Rate 18 01/15/18 14:25 Blood Pressure 121/73 01/15/18 14:25 O2 Sat by Pulse Oximetry (%) 94 L 01/15/18 14:25 Constitutional: Yes: No Distress, Calm Neck: Yes: Supple Cardiovascular: Yes: Tachycardia, Pulse Irregular Respiratory: Yes: Regular, CTA Bilaterally Gastrointestinal: Yes: Normal Bowel Sounds, Soft Edema: No Labs: CBC, BMP 01/15/18 06:40 01/14/18 02:00 INR, PTT INR 1.10 (0.82-1.09) 01/13/18 20:34 - ....Imaging EKG: Report Reviewed (Tele: Rapid afib) Problem List - Problems (1) Atrial fibrillation with rapid ventricular response Code(s): I48.91 - UNSPECIFIED ATRIAL FIBRILLATION (2) HTN (hypertension) Code(s): I10 - ESSENTIAL (PRIMARY) HYPERTENSION Qualifiers: Hypertension type: essential hypertension Qualified Code(s): I10 - Essential (primary) hypertension Assessment/Plan 01/15/2018 Echo: Normal LV and RV size and fxn 1. AF (paroxysmal) with RVR [id number] score currently 1 or 2 2. HTN 3. Noncompliant with medical therapy in the past PLAN: 1. Uptitrated Lopressor and Cardizem as tolerated to maintain HR control 2. Eliquis 5 mg BID 3. If remains in AF and rate-control problematic, may consider antiarrhythmic ( pending assessment of LV function) +/- synchronized cardioversion +/- CHRISTOPHER
[2018-01-16] MEDS: dilTIAZem HCL 30 MG TABLET (FP) PO SCH ×3 (06:34→11:55)
[2018-01-16 09:39] VITALS: BP 114/60; PULSE 93; TEMP 98.7
[2018-01-16] MEDS: METOPROLOL TARTRATE 50 MG TABLET (FP) PO SCH (09:39)
[2018-01-16] MEDS: APIXABAN 5 MG TABLET PO SCH (09:39)
--- NOTE | 2018-01-16 09:59 | PN ---
Progress Note, Physician History of Present Illness: Chest pressure and shortness of breath with exertion has improved, rate-control improved. - Current Medication List Current Medications: Active Medications Apixaban (Eliquis -) 5 mg PO BID [facility] Last Admin: 01/16/18 09:39 Dose: 5 mg Diltiazem HCl (Cardizem -) 30 mg PO Q6HPO [facility] Last Admin: 01/16/18 06:34 Dose: 30 mg Metoprolol Tartrate (Lopressor -) 75 mg PO BID [facility] Last Admin: 01/16/18 09:39 Dose: 75 mg - Objective Vital Signs: Vital Signs Temperature 98.7 F 01/16/18 09:38 Pulse Rate 93 H 01/16/18 09:38 Respiratory Rate 18 01/16/18 09:38 Blood Pressure 114/60 01/16/18 09:38 O2 Sat by Pulse Oximetry (%) 95 01/16/18 06:00 Constitutional: Yes: No Distress, Calm Neck: Yes: Supple Cardiovascular: Yes: Pulse Irregular Respiratory: Yes: Regular, CTA Bilaterally Gastrointestinal: Yes: Normal Bowel Sounds, Soft Edema: No Labs: CBC, BMP 01/15/18 06:40 01/14/18 02:00 INR, PTT INR 1.10 (0.82-1.09) 01/13/18 20:34 Problem List - Problems (1) Atrial fibrillation with rapid ventricular response Code(s): I48.91 - UNSPECIFIED ATRIAL FIBRILLATION (2) HTN (hypertension) Code(s): I10 - ESSENTIAL (PRIMARY) HYPERTENSION Qualifiers: Hypertension type: essential hypertension Qualified Code(s): I10 - Essential (primary) hypertension Assessment/Plan 01/15/2018 Echo: Normal LV and RV size and fxn 1. AF (paroxysmal) with RVR [id number] score currently 1 or 2 2. HTN 3. Noncompliant with medical therapy in the past PLAN: 1. Lopressor 100 bid and Cardizem CD 120 qd as tolerated to maintain HR control 2. Eliquis 5 mg BID 3. If remains in AF and rate-control problematic, may consider antiarrhythmic ( pending assessment of LV function) +/- synchronized cardioversion +/- CHRISTOPHER 4. May d/c with f/u in office
--- NOTE | 2018-01-16 10:30 | DS ---
Physical Exam: SUBJECTIVE: Patient seen and examined, ambulatory at bedside, denies any chest pain or shortness of breath. OBJECTIVE: 62 year old male presented to the ED with increasing SOB over the past week and irregular ECG at urgent care. Patient reports he has not been feeling well over the past 2 weeks, with a sore throat, ear pain, and cough. One week ago, he noticed he was becoming more short of breath when walking even very short distances. He also noticed he has been sweating more and has slight swelling of his ankles at the end of the day over the past several weeks. He denies fevers, dizziness, light headedness, syncope, chest pain, palpitations, no n/v/d. He has not seen a doctor in several years and does not take any medication, and his encouraged him to go to urgent care. He was sent to the ED from urgent care after his showed atrial fibrillation. Patient was on a one month vacation to [facility] in October where he reports gaining 20 lbs. He went to a dandy tender in [place] (cannot remember the name ) 6 years ago after he had experienced intermittent chest pain. He was given a full cardiac work up, including a stress test, and he was told "the wiring in his heart is irregular," and that they could do surgery, or they he could take a prescription medication. He took the medication for a few months, then stopped taking it. 15 years ago, he reports going to the cardiac bottle labeler where they planned to place a stent, but was told his heart looked fine and the stent was not placed. He reports his BP has always been low. He loves to eat "trash" such as cold cuts, cheese, chicken wings and hamburgers. At home he takes several supplements including vitamin E, C, multivitamin, CoQ10, fish oil, and a baby aspirin. He takes about 4 Advils a night for joint pain. Upon admission to the ED, his pulse ranged from the 110s-140s. ECG +A-fib, CXR unremakable. He was given Cardizem and Lovenox. Patient reports he is feeling fine, but he was also feeling fine when he came to the ED. Vital Signs Period Temp Pulse Resp BP Sys/Quintero Pulse Ox Last 24 Hr 97.6 F-98.7 F 67-96 18-18 114-121/60-86 94-96 PHYSICAL EXAM GENERAL: The patient is awake, alert, and fully oriented, in no acute distress. HEAD: Normal with no signs of trauma. EYES: PERRL, extraocular movements intact, sclera anicteric, conjunctiva clear. ENT: Ears normal, nares patent, oropharynx clear without exudates, moist mucous membranes. NECK: Trachea midline, full range of motion, supple. LUNGS: Breath sounds equal, clear to auscultation bilaterally, no wheezes, no crackles, no accessory muscle use. HEART:irregular rate and rhythm, S1, S2 without murmur, rub or gallop. ABDOMEN: Soft, nontender, nondistended, normoactive bowel sounds, no guarding, no rebound, no hepatosplenomegaly, no masses. EXTREMITIES: 2+ pulses, warm, well-perfused, no edema. NEUROLOGICAL: Cranial nerves II through XII grossly intact. Normal speech, steadgt gait not observed. PSYCH: Normal mood, normal affect. SKIN: Warm, dry, normal turgor, no rashes or lesions noted. LABS Laboratory Results - last 24 hr 01/15/18 06:40 Triglycerides 271 H Cholesterol 226 Total LDL Cholesterol 132 HDL Cholesterol 40 CBC WBC 6.9 K/mm3 (4.0-10.8) 01/15/18 06:40 RBC 4.56 M/mm3 (4.00-5.60) 01/15/18 06:40 Hgb 14.2 GM/dl (11.7-16.9) 01/15/18 06:40 Hct 42.9 % (35.4-49) 01/15/18 06:40 MCV 94.1 fl (80-96) 01/15/18 06:40 MCH 31.2 pg (25.7-33.7) 01/15/18 06:40 MCHC 33.1 g/dl (32.0-35.9) 01/15/18 06:40 RDW 12.9 % (11.9-15.9) 01/15/18 06:40 Plt Count 221 K/MM3 (134-434) 01/15/18 06:40 MPV 9.2 fl (7.5-11.1) 01/15/18 06:40 Absolute Neuts (auto) 4.0 K/mm3 01/13/18 20:38 Neutrophils % 54.5 % (42.8-82.8) 01/13/18 20:38 Lymphocytes % 29.4 % (8-40) 01/13/18 20:38 Monocytes % 10.2 % (3.8-10.2) 01/13/18 20:38 Eosinophils % 2.9 % (0-4.5) 01/13/18 20:38 Basophils % 3.0 % (0-2.0) H 01/13/18 20:38 CMP Sodium 139 mmol/L (136-145) 01/14/18 02:00 Potassium 4.2 mmol/L (3.5-5.1) 01/14/18 02:00 Chloride 106 mmol/L (98-107) 01/14/18 02:00 Carbon Dioxide 27 mmol/L (21-32) 01/14/18 02:00 Anion Gap 6 MMOL/L (8-16) L 01/14/18 02:00 BUN 18 mg/dL (7-18) 01/14/18 02:00 Creatinine 1.0 mg/dL (0.55-1.3) 01/14/18 02:00 Creat Clearance w eGFR > 60 (>60) 01/14/18 02:00 Random Glucose 105 mg/dL (74-106) 01/14/18 02:00 Hemoglobin A1c % 6.4 % (4.2-6.3) H 01/15/18 06:40 Calcium 8.6 mg/dL (8.5-10.1) 01/14/18 02:00 Magnesium 2.0 mg/dL (1.8-2.4) 01/15/18 06:40 Total Bilirubin 0.6 mg/dL (0.2-1) 01/14/18 02:00 AST 66 U/L (15-37) H 01/14/18 02:00 ALT 112 U/L (13-61) H 01/14/18 02:00 Alkaline Phosphatase 76 U/L (45-117) 01/14/18 02:00 Troponin I < 0.03 ng/ml (0.00-0.06) 01/14/18 18:10 B-Natriuretic Peptide 1082.8 pg/ml (5-125) H 01/13/18 20:34 Total Protein 6.6 g/dl (6.4-8.2) 01/14/18 02:00 Albumin 3.8 g/dl (3.4-5.0) 01/14/18 02:00 Triglycerides 271 mg/dl (35-160) H 01/15/18 06:40 Cholesterol 226 mg/dl 01/15/18 06:40 Total LDL Cholesterol 132 mg/dl 01/15/18 06:40 HDL Cholesterol 40 mg/dl (29-89) 01/15/18 06:40 TSH 1.41 uIU/ml (0.358-3.74) 01/13/18 20:34 IMAGING cxr: no acute pathology echo: 01/14/18 lv wnl, no aortic stenosis HOSPITAL COURSE: Patient was admitted from the emergency department to medical surgery telemetry for Atrial Fibrillation with RVR. patient was placed on continuous cardiac monitoring, he was started on Lopressor and Cardizem, with good response. Patient was started on eliquis on hospital day 1. Echo noted as above. Research Soil Scientist, Dr Napoles was consulted and followed patient throughout admission. Patient was noted to have an elevated BNP upon arrival. CXR negative as above. Patient remained euvolemic throughout admission. PLAN: - discharge home with follow up to cardiology - continue Cardizem Lopressor and eliquies as prescribed - return precautions reviewed with patient and patient verbalized understanding Date of Admission:01/13/18 Date of Discharge: 01/16/18 Minutes to complete discharge: 45 Discharge Summary Reason For Visit: NEW ONSET AFIB, CHF, DYSPNEA ON EXCERTION Current Active Problems Atrial fibrillation with rapid ventricular response (Acute) CHF (congestive heart failure) (Acute) ARCEO (dyspnea on exertion) (Acute) HTN (hypertension) (Acute) New onset a-fib (Acute) Condition: Good - Instructions Diet, Activity, Other Instructions: You were admitted from the emergency department to the hospital for new onset rapid A. fib you were started on 2 medications to regulate your blood pressure and heart rate Cardizem and Lopressor In addition you were started on a blood thinner--> Eliquis Please follow up with the dandy tender Dr. Tre Napoles on 01/21/2018 at 9 :00am Please bring your insurance cards with you to this appointment Continue all medications as prescribed if any new or persistent symptoms develop please return to emergency department Referrals: Andrzej Napoles MD [Staff Physician] - 01/21/18 9:00 am Disposition: HOME - Home Medications Comprehensive Discharge Medication List: Ambulatory Orders NK [No Known Home Medication] 01/13/18 This patient is new to me today: No Emergency Visit: Yes ED Registration Date: 01/13/18 Care time: The patient presented to the Emergency Department on the above date and was hospitalized for further evaluation of their emergent condition. Critical Care patient: No - Discharge Referral Referred to [facility] No
== END 2018-01-16 13:54 | disposition home or self-care (01) | DRG 310 ==
LOC: FER 20:14 → FM/S 23:13 → UNDOADMIN 23:39 → FM/S 23:39
PROVIDERS: ADMIT Internal Medicine; ATTEND Nurse Practitioner Family
DX: I48.0 Paroxysmal atrial fibrillation (principal); I11.0 Hypertensive heart disease with heart failure; I50.9 Heart failure, unspecified; Z91.14 Patient's other noncompliance with medication regimen; Z87.891 Personal history of nicotine dependence; R74.8 Abnormal levels of other serum enzymes; F10.10 Alcohol abuse, uncomplicated; E66.9 Obesity, unspecified; Z68.36 Body mass index [BMI] 36.0-36.9, adult
CPT/HCPCS: 36415; 71045-TC-FY; 80053; 80061; 81003; 82465; 83036; 83735; 83880; 84443; 84484; 85025; 85027; 85379; 85610; 85730; 86850; 86900; 86901; 93005; 93306-TC; 99285-25

== ENCOUNTER 2018-01-23 10:48 | Day surgery (SDC) | payer OTHER, MEDICARE ==
[2018-01-23] MEDS ORDERED: LIDOCAINE VISCOUS 2% ORAL/TOP 20 ML UNIT-DOSE CUP ONE (11:17)
[2018-01-23 11:24] VITALS: BMI 36.7
[2018-01-23 12:05] VITALS: TEMP 97.7
--- NOTE | 2018-01-23 12:49 | ECHO ---
Name: CAM, DEBORAH Exam:Transesophageal Echocardiogram Study Date: 01/23/2018 11:35 AM Age: 62 yrs Height: 74 in Weight: 286 lb BSA: 2.5 m2 Procedure: A 2D transesophageal echocardiogram with Doppler and color flow Doppler was performed. Informed conse nt for Transesophageal Echocardiogram, and use of a contrast agent as needed, was obtained prior to the proc edure. The patient was brought to the endoscopy suite in a fasting state. An intravenous line was placed. A topical anesthetic agent was used for oropharangeal anesthesia. A bite block was inserted. IV concious sedati on was administered using propafol. A multifrequency, multiplane transesopheageal echocardiographic endoscop e was inserted and manipulated in the standard fashion to achieve multiplane views. The usual views were ob tained; basal, mid-esophageal, transgastric and aortic views. The patient's vital signs, including blood pres sure, heart rate, pulse oximetry and cardiac rhythm were monitored throughout the procedure and remained st able. The patient tolerated the procedure well without evidence of orophangeal or esophageal trauma. There were no complications. The patient was in atrial fibrillation with controlled ventricular rate during the exa m. Left Ventricle The left ventricle is normal in size. Left ventricular systolic function is mild to moderately reduce d. Ejection Fraction = 40-45%. There is mild global hypokinesis of the left ventricle. Atria The left atrial size is normal. No left atrial mass or thrombus visualized. No thrombus is detected i n the left atrial appendage. The interatrial septum is intact with no evidence for an atrial septal defect. Injection of contrast documented no interatrial shunt. Mitral Valve The mitral valve leaflets appear normal. There is no evidence of stenosis, fluttering, or prolapse. T here is mild mitral regurgitation. Tricuspid Valve The tricuspid valve is not well visualized, but is grossly normal. No tricuspid regurgitation. Aortic Valve There is mild aortic sclerosis.;. The aortic valve opens well. The aortic valve is trileaflet. Mild a ortic regurgitation. Pulmonic Valve The pulmonic valve is not well visualized. Mild pulmonic valvular regurgitation. Great Vessels No evidence of atherosclerotic plaques are seen in thoracic aorta or aortic arch. Pericardium/Pluera Trivial pericardial effusion not hemodynamically significant. Interpretation Summary The left ventricle is normal in size. Left ventricular systolic function is mild to moderately reduced. There is mild global hypokinesis of the left ventricle. Ejection Fraction = 40-45%. The left atrial size is normal. No left atrial mass or thrombus visualized. No thrombus is detected in the left atrial appendage. The interatrial septum is intact with no evidence for an atrial septal defect. Injection of contrast documented no interatrial shunt. There is mild mitral regurgitation. There is mild aortic sclerosis.; The aortic valve is trileaflet. Mild aortic regurgitation. Mild pulmonic valvular regurgitation. No evidence of atherosclerotic plaques are seen in thoracic aorta or aortic arch Trivial pericardial effusion not hemodynamically significant Proceed with synchronized cardioversion Gurjit Cesar MD 01/23/2018 12:49 PM
[2018-01-23 13:32] VITALS: BP 110/74; PULSE 67
--- NOTE | 2018-01-23 14:14 | EKG ---
Test Reason : Blood Pressure : / mmHG Vent. Rate : 066 BPM Atrial Rate : 066 BPM P-R Int : 162 ms QRS Dur : 096 ms QT Int : 410 ms P-R-T Axes : 061 066 051 degrees QTc Int : 429 ms NORMAL SINUS RHYTHM NORMAL ECG WHEN COMPARED WITH ECG OF 13-JAN-2018 20:21, SINUS RHYTHM HAS REPLACED ATRIAL FIBRILLATION VENT. RATE HAS DECREASED BY 72 BPM NONSPECIFIC T WAVE ABNORMALITY NO LONGER EVIDENT IN INFERIOR LEADS Confirmed by DANIELLE ELLSWORTH MD ([id number]) on 01/23/2018 2:13:47 PM Referred By: Gurjit Cesar Confirmed By:DANIELLE ELLSWORTH MD
== END 2018-01-23 13:05 | disposition home or self-care (01) ==
LOC: JASU-ENDO 10:48
PROVIDERS: ATTEND Internal Medicine Cardiovascular Disease
PROC: 5A2204Z Restoration of Cardiac Rhythm, Single (ICD-10-PCS; 2018-01-23)
PROC: B246ZZ4 Ultrasonography of Right and Left Heart, Transesophageal (ICD-10-PCS; principal; 2018-01-23 12:00)
DX: I48.91 Unspecified atrial fibrillation (principal)
CPT/HCPCS: 93005; 93010; 93312; 93325

== ENCOUNTER 2019-02-16 16:01 | Inpatient (IN) | payer OTHER, MEDICARE ==
[2019-02-16] MEDS ORDERED: VANCOMYCIN 1 GM in D5W (PRE-DOCKED) 1,000 MG/250 ML IVPB ONE (17:28)
[2019-02-16] MEDS ORDERED: PIPERACILLIN/TAZOB 3.375 GM 3.375 GM in DEXTROSE 5%-WATER - 50 ML IVPB ONE (17:28)
--- NOTE | 2019-02-16 18:20 | PDOC ---
Documentation entered by Bay Carey SCRIBE, acting as scribe for Jewell Rousseau DO. Jewell Rousseau DO: This documentation has been prepared by the Aurelio mackay Daniel, SCRIBE, under my direction and personally reviewed by me in its entirety. I confirm that the documentation accurately reflects all work, treatment, procedures, and medical decision making performed by me. History of Present Illness - General Chief Complaint: Wound Stated Complaint: RIGHT ELBOW SWELLING AND REDNESS History Source: Patient Exam Limitations: No Limitations - History of Present Illness Initial Comments: 02/16/19 17:41 The patient is a 64 year old male with a past medical history of HTN, HLD, prior staph infection (30 years ago), and afib (eliquis) here today for evaluation of right elbow burning and redness. The patient reports that 1 month ago he was on a cruise when he noticed right elbow edema and states that it got better until he hit it on something and it became worse and turned black. Patient reports that he went to an urgent care on saturday (02/13/19) where he was prescribed clindamycin. Patient states since taking the antibiotic, he developed redness and burning over his right elbow. He reports going to his orthopedic surgeon who outlined his elbow and told him to go to the ER if it got worse. Patient denies headache, lightheadedness. Denies fever, chills. Denies chest pain, shortness of breath. Denies nausea, vomiting, diarrhea, abdominal pain. Allergies: penicillins Past History - Past Medical History Allergies/Adverse Reactions: Allergies Allergy/AdvReac Type Severity Reaction Status Date / Time Penicillins Allergy Intermediate Hives Verified 02/16/19 17:04 Home Medications: Ambulatory Orders Apixaban [Eliquis -] 5 mg PO BID #60 tablet 01/16/18 Diltiazem Cd [Cardizem Cd -] 120 mg PO DAILY #30 cap.cd.24h 01/16/18 Metoprolol Tartrate [Lopressor] 50 mg PO DAILY 02/16/19 Anemia: No Asthma: No Cancer: No Cardiac Disorders: Yes (A FIB) CVA: No COPD: No CHF: No Dementia: No Diabetes: No GI Disorders: No Disorders: No HTN: No Hypercholesterolemia: No Liver Disease: No Seizures: No Thyroid Disease: No - Surgical History Abdominal Surgery: No Appendectomy: Yes Cardiac Surgery: No Cholecystectomy: No Lung Surgery: No Neurologic Surgery: No Orthopedic Surgery: Yes (ROSIE KNEE SURGERY, ELBOW, RIGHT SHOULDER X 2 LEFT SHOULDER X 1) - Psycho Social/Smoking Cessation Hx Smoking History: Former smoker Have you smoked in the past 12 months: No If you are a former smoker, when did you quit?: 15 years Information on smoking cessation initiated: No Hx Alcohol Use: Yes (wine daily) Drug/Substance Use Hx: No Substance Use Type: None Hx Substance Use Treatment: No Review of Systems - Review of Systems Able to Perform ROS?: Yes Comments:: 02/16/19 17:42 GENERAL/CONSTITUTIONAL: No fever or chills. No weakness. HEAD, EYES, EARS, NOSE AND THROAT: No change in vision. No ear pain or discharge. No sore throat. GASTROINTESTINAL: No nausea, vomiting, diarrhea or constipation. GENITOURINARY: No dysuria, frequency, or change in urination. CARDIOVASCULAR: No chest pain or shortness of breath. RESPIRATORY: No cough, wheezing, or hemoptysis. MUSCULOSKELETAL: No joint or muscle swelling or pain. No neck or back pain. SKIN: +right elbow redness and burning. NEUROLOGIC: No headache, vertigo, loss of consciousness, or change in strength/ sensation. ENDOCRINE: No increased thirst. No abnormal weight change. HEMATOLOGIC/LYMPHATIC: No anemia, easy bleeding, or history of blood clots. ALLERGIC/IMMUNOLOGIC: No hives or skin allergy. *Physical Exam - Vital Signs Last Vital Signs Temp Pulse Resp BP Pulse Ox 98 F 90 16 127/78 98 02/16/19 16:03 02/16/19 16:03 02/16/19 16:03 02/16/19 16:03 02/16/19 16:03 - Physical Exam 02/16/19 17:42 Constitutional: Awake, alert, oriented. No acute distress. Head: Normocephalic. Atraumatic Eyes: PERRL. EOMI. Conjunctivae are not pale. ENT: Mucous membranes are moist and intact. Posterior pharynx without exudates or erythema. Uvula midline. Neck: Supple. Full ROM. No lymphadenopathy. Cardiovascular: Regular rate. Regular rhythm. S1, S2 regular. Distal pulses are 2+ and symmetric. Pulmonary/Chest: No evidence of respiratory distress. Clear to auscultation bilaterally No wheezing, rales or rhonchi. Abdominal: Soft and non-distended. There is no tenderness. No rebound, guarding or rigidity. No organomegaly. No palpable masses. Good bowel sounds. Back: No CVA tenderness. Musculoskeletal: No edema. No cyanosis. No clubbing. Full range of motion in all extremities. Nocalf tenderness. Radial/pedal pulses are intact and 2+ bilaterally Skin: +outlined right elbow with lymphangitic streaking past the outline shelter down the forearm and up the distal humerus. Skin is warm and dry. No petechiae. No purpura. Neurological: Alert and oriented to person, place, and time. Cranial nerves II -XII are grossly intact. Normal speech. Strength is grossly symmetric. No sensory deficits. Psychiatric: Good eye contact. Normal interaction, affect and behavior. ED Treatment Course - LABORATORY CBC & Chemistry Diagram: 02/16/19 18:15 02/16/19 18:20 - RADIOLOGY Radiology Studies Ordered: Category Date Time Status CHEST PA & LAT [RAD] Stat Radiology 02/16/19 17:28 Taken ELBOW-RIGHT [RAD] Stat Radiology 02/16/19 17:27 Taken Medical Decision Making - Medical Decision Making 02/16/19 18:17 I, Dr. Jewell Rousseau, DO, attest that this document has been prepared under my direction and personally reviewed by me in its entirety. I further attest, that it accurately reflects all work, treatment, procedures and medical decision -making performed by me. a/p: 64yo male with R elbow pain -pt went to urgent care on saturday and started clinda -saw his ortho today who states redness is worsening and spreading and he needs iv abx -pt states was inflammed bursa which popped and spread into an arm infection -no f/c -arm pain -no lacerations -no palpable abscess -lymphangitic spread -hx of staph infections -will send labs, cultures, iv abx 02/16/19 18:21 no crepitus forearm and distal humerus with redness, warmth xray without gas, no fx cultures sent iv abx ordered discussed with Lizet Casey from [facility] who accepts pt to service pt with cellulitis of the R arm that failed outpt abx 02/16/19 18:53 no elevated wbc cellulitis has been outlined Discharge - Discharge Information Problems reviewed: Yes Clinical Impression/Diagnosis: Right arm cellulitis Condition: Fair - Admission Yes - Follow up/Referral - Patient Discharge Instructions - Post Discharge Activity
[2019-02-16 18:36] LABS: BASO % 1.1 % (0-2.0); EOS % 2.9 % (0-4.5); HEMATOCRIT 40.6 % (35.4-49); HEMOGLOBIN 13.9 GM/dl (11.7-16.9); LYMPH % 23.9 % (8-40); MCHC 34.2 g/dl (32.0-35.9); MEAN CELL VOLUME 93.6 fl (80-96); MEAN PLT VOLUME 8.6 fl (7.5-11.1); MONO % 11.4 % (3.8-10.2); NEUT % 60.7 % (42.8-82.8); PLATELET COUNT 220 K/MM3 (134-434); RBC 4.34 M/mm3 (4.00-5.60); RDW 12.6 % (11.9-15.9); WHITE BLOOD COUNT 7.1 K/mm3 (4.0-10.8)
[2019-02-16] MEDS ORDERED: VANCOMYCIN 1,000 MG VIAL (RESTRICTED TO ID ONLY) ONE (18:38)
[2019-02-16 18:55] LABS: ALBUMIN 3.8 g/dl (3.4-5.0); BILIRUBIN,TOTAL 0.6 mg/dl (0.2-1); CALCIUM 9.4 mg/dl (8.5-10); CREATININE 0.9 mg/dl (0.55-1.3); POTASSIUM 4.1 mmol/L (3.5-5.1); TOT PROT 6.6 g/dl (6.4-8.2)
[2019-02-16 18:56] LABS: INR 1.19 (0.82-1.09); PROTHROMBIN TIME (PATIENT) 13.3 SEC (10.2-13.0)
[2019-02-16 21:14] VITALS: BMI 39.0
--- NOTE | 2019-02-16 22:35 | HP ---
CHIEF COMPLAINT: Right elbow pain and swelling PCP: [facility]: Dr. Andrzej Napoles HISTORY OF PRESENT ILLNESS: 64 year-old male with a PMH significant for HTN, atrial fibrillation, diastolic heart failure, sustained alcohol use, and non-compliance. Presented to the ED for evaluation of right elbow pain, swelling, and redness. Patient was on a cruise from mid-December to mid-January. Toward the end of December, after leaving [place] and en route to [place], he developed a lump on his right elbow. It was soft, "squishy", not red, and not hot. He did not seek medical care during his trip. After his return, on or about 01/28, he banged the elbow and the lump turned black. About a week after that, the elbow became red, hot, swollen, and painful. Patient self-treated by taking large amounts of Advil. Four days ago patient finally sought medical care at an urgent care center and was started on clindamycin. Yesterday, he had several episodes of sweats and chills. He had a visit with his orthopedist who suggested he come to the ED. ER course was notable for: (1) WBC wnl, afebrile (2) lactic acid wnl Recent Travel: Cruise to [place] and [place] PAST MEDICAL HISTORY: Hypertension Atrial fibrillation Diastolic heart failure PAST SURGICAL HISTORY: Shoulder surgery x 3 Elbow surgery Knee surgery Tonsillectomy Appendectomy Social History: Works repairing and installing boilers Smoking: quit 2009 Alcohol: bottle of wine per night, long history of ETOH use Drugs: no Family History: Mother: Multiple sclerosis Father: Suicide Allergies Penicillins Allergy (Intermediate, Verified 02/16/19 17:04) Hives HOME MEDICATIONS: Home Medications Medication Instructions Recorded Apixaban [Eliquis -] 5 mg PO BID #60 tablet 01/16/18 Diltiazem Cd [Cardizem Cd -] 120 mg PO DAILY #30 cap.cd.24h 01/16/18 Metoprolol Tartrate [Lopressor] 50 mg PO DAILY 02/16/19 REVIEW OF SYSTEMS CONSTITUTIONAL: +chills, sweats Absent: fever, diaphoresis, generalized weakness, malaise, loss of appetite, weight change HEENT: Absent: rhinorrhea, nasal congestion, throat pain, throat swelling, difficulty swallowing, mouth swelling, ear pain, eye pain, visual changes CARDIOVASCULAR: Absent: chest pain, syncope, palpitations, irregular heart rate, lightheadedness , peripheral edema RESPIRATORY: Absent: cough, shortness of breath, dyspnea with exertion, orthopnea, wheezing, stridor, hemoptysis GASTROINTESTINAL: Absent: abdominal pain, abdominal distension, nausea, vomiting, diarrhea, constipation, melena, hematochezia GENITOURINARY: Absent: dysuria, frequency, urgency, hesitancy, hematuria, flank pain, genital pain MUSCULOSKELETAL: +right elbow pain, swelling, erythema, warmth Absent: myalgia, arthralgia, joint swelling, back pain, neck pain SKIN: Absent: rash, itching, pallor HEMATOLOGIC/IMMUNOLOGIC: Absent: easy bleeding, easy bruising, lymphadenopathy, frequent infections ENDOCRINE: Absent: unexplained weight gain, unexplained weight loss, heat intolerance, cold intolerance NEUROLOGIC: Absent: headache, focal weakness or paresthesias, dizziness, unsteady gait, seizure, mental status changes, bladder or bowel incontinence PSYCHIATRIC: Absent: anxiety, depression, suicidal or homicidal ideation, hallucinations. PHYSICAL EXAMINATION Vital Signs - 24 hr 02/16/19 02/16/19 16:03 20:57 Temperature 98 F 98.0 F Pulse Rate 90 94 H Respiratory 16 18 Rate Blood Pressure 127/78 136/58 L O2 Sat by Pulse 98 96 Oximetry (%) GENERAL: Awake, alert, and fully oriented, in no acute distress. Morbidly obese. HEAD: Normal with no signs of trauma. EYES: Pupils equal, round and reactive to light, extraocular movements intact, sclera anicteric, conjunctiva clear. LUNGS: Breath sounds equal, clear to auscultation bilaterally. No wheezes, and no crackles. No accessory muscle use. HEART: Irregular, S1, S2 RUE: large area of erythema surrounding elbow, areas of induration, + tender 02/16/19 02/16/19 02/16/19 18:15 18:15 18:15 WBC 7.1 RBC 4.34 Hgb 13.9 Hct 40.6 MCV 93.6 MCH 32.0 MCHC 34.2 RDW 12.6 Plt Count 220 MPV 8.6 Absolute Neuts (auto) 4.3 Neutrophils % 60.7 Lymphocytes % 23.9 Monocytes % 11.4 H Eosinophils % 2.9 Basophils % 1.1 PT with INR INR PTT (Actin FS) 32.8 Sodium Potassium Chloride Carbon Dioxide Anion Gap BUN Creatinine Est GFR (CKD-EPI)AfAm Est GFR (CKD-EPI)NonAf Random Glucose Lactic Acid 1.2 Calcium Total Bilirubin AST ALT Alkaline Phosphatase Total Protein Albumin 02/16/19 02/16/19 18:15 18:20 WBC RBC Hgb Hct MCV MCH MCHC RDW Plt Count MPV Absolute Neuts (auto) Neutrophils % Lymphocytes % Monocytes % Eosinophils % Basophils % PT with INR 13.3 H INR 1.19 PTT (Actin FS) Sodium 138 Potassium 4.1 Chloride 103 Carbon Dioxide 23 Anion Gap 12 BUN 15.0 Creatinine 0.9 Est GFR (CKD-EPI)AfAm 103.51 Est GFR (CKD-EPI)NonAf 89.31 Random Glucose 110 H Lactic Acid Calcium 9.4 Total Bilirubin 0.6 AST 26 ALT 40 Alkaline Phosphatase 83 Total Protein 6.6 Albumin 3.8 ASSESSMENT/PLAN 64 year-old male with a PMH significant for HTN, atrial fibrillation, diastolic heart failure, sustained alcohol use, and non-compliance. Admitted for cellulitis of right elbow, concern for possible septic joint and traumatic bacterial arthritis. Cellulitis right elbow --symptoms started about 5 weeks ago while on cruise to [place]; worsened about 2 weeks ago when patient banged the elbow and it turned black --blood cultures collected and sent --start Vanco and aztreonam (severe pen allergic, throat closes) --ortho consult, aspiration if possible --ID consult Hypertension --BP stable --continue metoprolol Atrial fibrillation --continue metoprolol, Eliquis, diltiazem Diastolic heart failure --01/23/18 CHRISTOPHER: LV mild to moderately reduced EF 40-45%, mild global hypokinesis; mild MR; mild AI; mild PI --not on home diuretics --BNP pending Alcohol use --monitor for s/s of withdrawal FEN Fluids: PO intake adequate Electrolytes: replete as indicated Nutrition: low sodium DVT prophylaxis: on Eliquis Dispo: continues to require inpatient care. Full code. Visit type - Emergency Visit Emergency Visit: Yes ED Registration Date: 02/16/19 Care time: The patient presented to the Emergency Department on the above date and was hospitalized for further evaluation of their emergent condition. - New Patient This patient is new to me today: Yes Date on this admission: 02/17/19 - Critical Care Critical Care patient: No
[2019-02-16] MEDS ORDERED: DEXTROSE 5%-WATER 100 ML IVPB ONE (23:07)
[2019-02-16] MEDS ORDERED: AZTREONAM 2 GM VIAL (RESTRICTED TO ID) ONE (23:08)
[2019-02-16] MEDS: METOPROLOL TARTRATE 50 MG TABLET (FP) PO SCH (23:19)
[2019-02-16] MEDS: AZTREONAM 2 GM in DEXTROSE 5%-WATER 100 ML IVPB SCH (23:20)
[2019-02-17] MEDS ORDERED: VANCOMYCIN HCL 1,500 MG in DEXTROSE 5%-WATER - 500 ML IVPB SCH (06:00)
[2019-02-17] MEDS ORDERED: VANCOMYCIN HCL 1,500 MG in DEXTROSE 5%-WATER - 250 ML IVPB SCH (06:00)
--- NOTE | 2019-02-17 07:33 | PN ---
Physical Exam: SUBJECTIVE: Patient seen and examined sitting on edge of bed eating [place] food. Earlier today had a rash reaction on his left arm (with peripheral IV) and neck about 15 minutes after starting aztreonam. Benadryl given to good effect. Aztreonam added to patient allergies. Stop Vanco as well. Will start clindamycin and ertapenem. OBJECTIVE: Vital Signs Period Temp Pulse Resp BP Sys/Quintero Pulse Ox Last 24 Hr 98 F-98.2 F 81-94 16-18 127-141/58-83 96-98 GENERAL: Awake, alert, and fully oriented, in no acute distress. Morbidly obese. HEAD: Normal with no signs of trauma. EYES: Pupils equal, round and reactive to light, extraocular movements intact, sclera anicteric, conjunctiva clear. LUNGS: Breath sounds equal, clear to auscultation bilaterally. No wheezes, and no crackles. No accessory muscle use. HEART: Irregular, S1, S2 RUE: large area of erythema surrounding elbow, extending up to tricep and down to posterior forearm, + tender; area of induration Laboratory Results - last 24 hr 02/16/19 02/16/19 02/16/19 18:15 18:15 18:15 WBC 7.1 RBC 4.34 Hgb 13.9 Hct 40.6 MCV 93.6 MCH 32.0 MCHC 34.2 RDW 12.6 Plt Count 220 MPV 8.6 Absolute Neuts (auto) 4.3 Neutrophils % 60.7 Lymphocytes % 23.9 Monocytes % 11.4 H Eosinophils % 2.9 Basophils % 1.1 PT with INR INR PTT (Actin FS) 32.8 Sodium Potassium Chloride Carbon Dioxide Anion Gap BUN Creatinine Est GFR (CKD-EPI)AfAm Est GFR (CKD-EPI)NonAf Random Glucose Lactic Acid 1.2 Calcium Total Bilirubin AST ALT Alkaline Phosphatase Total Protein Albumin 02/16/19 02/16/19 18:15 18:20 WBC RBC Hgb Hct MCV MCH MCHC RDW Plt Count MPV Absolute Neuts (auto) Neutrophils % Lymphocytes % Monocytes % Eosinophils % Basophils % PT with INR 13.3 H INR 1.19 PTT (Actin FS) Sodium 138 Potassium 4.1 Chloride 103 Carbon Dioxide 23 Anion Gap 12 BUN 15.0 Creatinine 0.9 Est GFR (CKD-EPI)AfAm 103.51 Est GFR (CKD-EPI)NonAf 89.31 Random Glucose 110 H Lactic Acid Calcium 9.4 Total Bilirubin 0.6 AST 26 ALT 40 Alkaline Phosphatase 83 Total Protein 6.6 Albumin 3.8 Active Medications Generic Name Dose Route Start Last Admin Trade Name Ron PRN Reason Stop Dose Admin Apixaban 5 mg 02/17/19 10:00 Eliquis - PO BID [facility] Diltiazem HCl 120 mg 02/17/19 10:00 Cardizem Cd - PO DAILY [facility] Vancomycin HCl 1,500 mg/ 250 mls @ 125 mls/hr 02/17/19 06:00 Dextrose IVPB Q12H [facility] Protocol Vancomycin HCl 1,500 mg/ 500 mls @ 250 mls/hr 02/17/19 06:00 Dextrose IVPB 02/17/19 19:59 Q12H [facility] Protocol Aztreonam 2 gm/ Dextrose 100 mls @ 100 mls/hr 02/16/19 22:45 IVPB Q8H-IV [facility] Protocol Aztreonam 2 gm/ Dextrose 100 mls @ 100 mls/hr 02/16/19 23:00 02/16/19 23:20 IVPB 02/17/19 18:59 100 mls/hr Q8H-IV [facility] Administration Protocol Metoprolol Tartrate 50 mg 02/16/19 22:00 02/16/19 23:19 Lopressor - PO 50 mg BID [facility]TE Administration ASSESSMENT/PLAN: 64 year-old male with a PMH significant for HTN, atrial fibrillation, diastolic heart failure, sustained alcohol use, and non-compliance. Admitted for cellulitis of right elbow, concern for possible septic joint. Cellulitis right elbow r/o septic joint --symptoms started about 5 weeks ago while on cruise to [place]; worsened about 2 weeks ago when patient banged the elbow and it turned black --blood cultures NGTD --hives reaction to aztreonam; stop aztreonam and vanc; start ertapenem and clindamycin per ID --ortho consult pending, aspiration if possible --ID consult Hypertension --BP stable --continue metoprolol Atrial fibrillation --continue metoprolol, Eliquis, diltiazem Diastolic heart failure --01/23/18 CHRISTOPHER: LV mild to moderately reduced EF 40-45%, mild global hypokinesis; mild MR; mild AI; mild PI --not on home diuretics --BNP wnl Alcohol use --monitor for s/s of withdrawal FEN Fluids: PO intake adequate Electrolytes: replete as indicated Nutrition: low sodium (eating [place] takeout) DVT prophylaxis: on Eliquis Dispo: continues to require inpatient care. Full code. Visit type - Emergency Visit Emergency Visit: Yes ED Registration Date: 02/16/19 Care time: The patient presented to the Emergency Department on the above date and was hospitalized for further evaluation of their emergent condition. - New Patient This patient is new to me today: No - Critical Care Critical Care patient: No
[2019-02-17 08:23] LABS: BASO % 0.6 % (0-2.0); EOS % 2.8 % (0-4.5); HEMATOCRIT 41.8 % (35.4-49); HEMOGLOBIN 14.2 GM/dl (11.7-16.9); MCH 31.8 pg (25.7-33.7); MCHC 33.9 g/dl (32.0-35.9); MEAN CELL VOLUME 93.9 fl (80-96); MEAN PLT VOLUME 9.1 fl (7.5-11.1); MONO % 13.2 % (3.8-10.2); NEUT % 56.4 % (42.8-82.8); PLATELET COUNT 256 K/MM3 (134-434); RBC 4.45 M/mm3 (4.00-5.60); RDW 12.6 % (11.9-15.9); WHITE BLOOD COUNT 5.9 K/mm3 (4.0-10.8)
[2019-02-17 09:03] LABS: ALBUMIN 3.6 g/dl (3.4-5.0); BILIRUBIN,TOTAL 0.8 mg/dl (0.2-1); CALCIUM 8.8 mg/dl (8.5-10); CREATININE 0.9 mg/dl (0.55-1.3); MAGNESIUM 1.9 mg/dL (1.8-2.4); POTASSIUM 4.2 mmol/L (3.5-5.1); TOT PROT 6.5 g/dl (6.4-8.2)
[2019-02-17] MEDS ORDERED: DEXTROSE 5%-WATER 100 ML IVPB ONE (09:04)
[2019-02-17] MEDS ORDERED: AZTREONAM 2 GM VIAL (RESTRICTED TO ID) ONE (09:05)
--- NOTE | 2019-02-17 09:07 | EKG ---
Test Reason : Blood Pressure : / mmHG Vent. Rate : 090 BPM Atrial Rate : 090 BPM P-R Int : 154 ms QRS Dur : 090 ms QT Int : 348 ms P-R-T Axes : 057 024 019 degrees QTc Int : 425 ms NORMAL SINUS RHYTHM NORMAL ECG WHEN COMPARED WITH ECG OF 23-JAN-2018 12:13, NO SIGNIFICANT CHANGE WAS FOUND Confirmed by Bhavik Arredondo MD ([id number]) on 02/17/2019 9:07:29 AM Referred By: Confirmed By:Bhavik Arredondo MD
[2019-02-17] MEDS: APIXABAN 5 MG TABLET PO SCH ×2 (09:51→21:53)
[2019-02-17] MEDS: METOPROLOL TARTRATE 50 MG TABLET (FP) PO SCH ×2 (09:51→21:53)
[2019-02-17] MEDS: AZTREONAM 2 GM in DEXTROSE 5%-WATER 100 ML IVPB SCH (09:53)
[2019-02-17] MEDS ORDERED: METOPROLOL TARTRATE 50 MG PO SCH (10:00)
--- NOTE | 2019-02-17 16:07 | CON.ID ---
Consult Consult Specialty:: infectious disease Referred by:: Lizet Reason for Consultation:: cellulitis of the rt elbow and hand - History of Present Illness Chief Complaint: pain and swelling of the rt elbow joint - Past Medical History Cardio/Vascular: Yes: AFIB, HTN - Past Surgical History Past Surgical History: Yes: Appendectomy, Joint Replacement, Tonsillectomy - Alcohol/Substance Use Hx Alcohol Use: Yes (wine daily) History of Substance Use: reports: None - Smoking History Smoking history: Former smoker Have you smoked in the past 12 months: No If you are a former smoker, when did you quit?: 15 years Home Medications - Allergies Allergies/Adverse Reactions: Allergies Allergy/AdvReac Type Severity Reaction Status Date / Time Penicillins Allergy Intermediate Hives Verified 02/16/19 17:04 - Home Medications Home Medications: Ambulatory Orders Apixaban [Eliquis -] 5 mg PO BID #60 tablet 01/16/18 Diltiazem Cd [Cardizem Cd -] 120 mg PO DAILY #30 cap.cd.24h 01/16/18 Metoprolol Tartrate [Lopressor] 50 mg PO DAILY 02/16/19 Physical Exam Vital Signs: Vital Signs Temperature 98.2 F 02/17/19 06:00 Pulse Rate 81 02/17/19 06:00 Respiratory Rate 18 02/17/19 08:10 Blood Pressure 141/83 02/17/19 06:00 O2 Sat by Pulse Oximetry (%) 96 02/17/19 08:10 Labs: CBC, BMP 02/17/19 07:30 02/17/19 07:30
[2019-02-17] MEDS ORDERED: diphenhydrAMINE HCL 25 MG CAPSULE (FP) PO ONE (17:15)
[2019-02-17] MEDS ORDERED: AZTREONAM 1 GM in DEXTROSE 5%-WATER - 50 ML IVPB SCH (18:00)
[2019-02-18] MEDS: CLINDAMYCIN 600MG PREMIX IVPB 600 MG/50 ML BAG IVPB SCH ×3 (01:06→17:50)
[2019-02-18] MEDS ORDERED: VANCOMYCIN HCL 1,500 MG in DEXTROSE 5%-WATER - 500 ML IVPB SCH (06:00)
[2019-02-18] MEDS: APIXABAN 5 MG TABLET PO SCH ×2 (09:26→21:29)
[2019-02-18] MEDS: METOPROLOL TARTRATE 50 MG TABLET (FP) PO SCH ×2 (09:26→21:29)
[2019-02-18] MEDS ORDERED: ERTAPENEM SODIUM 1 GM in SODIUM CHLORIDE 50 ML IVPB SCH ×5 (10:00→16:15)
--- NOTE | 2019-02-18 15:15 | CONSULT ---
Consult Consult Specialty:: Orthopedics Reason for Consultation:: right elbow - History of Present Illness History of Present Illness: 64-year-old male admitted to the hospital for right elbow pain and swelling. He states he had a "bump" on the tip of his elbow for approximately a month and was away in [place]. He returned home about 2 weeks ago and was seen by his primary care doctor and was referred to orthopedics. The bump ended up going away on its own before he was seen by orthopedist. He then started having some swelling and pain distal to where the bump was with Dante increasingly worse. He was seen in urgent care where he was started on oral antibiotics and continued to have worsening of the pain and swelling and redness. He was sent to the ER and started on IV antibiotics. Since starting the IV antibiotics the elbow is feeling much better. He denies any injury to the elbow. There are no other associated, aggravating or relieving factors - History Source History Provided By: Patient, Medical Record - Past Medical History Cardio/Vascular: Yes: AFIB, HTN - Past Surgical History Past Surgical History: Yes: Appendectomy, Joint Replacement, Tonsillectomy - Alcohol/Substance Use Hx Alcohol Use: Yes (wine daily) History of Substance Use: reports: None - Smoking History Smoking history: Former smoker Have you smoked in the past 12 months: No If you are a former smoker, when did you quit?: 15 years Home Medications - Allergies Allergies/Adverse Reactions: Allergies Allergy/AdvReac Type Severity Reaction Status Date / Time Penicillins Allergy Intermediate Hives Verified 02/16/19 17:04 aztreonam Allergy Hives Uncoded 02/17/19 18:25 - Home Medications Home Medications: Ambulatory Orders Apixaban [Eliquis -] 5 mg PO BID #60 tablet 01/16/18 Diltiazem Cd [Cardizem Cd -] 120 mg PO DAILY #30 cap.cd.24h 01/16/18 Metoprolol Tartrate [Lopressor] 50 mg PO DAILY 02/16/19 Review of Systems - Review of Systems Constitutional: reports: No Symptoms Eyes: reports: No Symptoms HENT: reports: No Symptoms Neck: reports: No Symptoms Cardiovascular: reports: No Symptoms Respiratory: reports: No Symptoms Gastrointestinal: reports: No Symptoms Genitourinary: reports: No Symptoms Breasts: reports: No Symptoms Reported Musculoskeletal: reports: No Symptoms Integumentary: reports: No Symptoms Neurological: reports: No Symptoms Endocrine: reports: No Symptoms Hematology/Lymphatic: reports: No Symptoms Psychiatric: reports: No Symptoms Physical Exam Vital Signs: Vital Signs Temperature 97.6 F 02/18/19 13:51 Pulse Rate 82 02/18/19 13:51 Respiratory Rate 19 02/18/19 13:51 Blood Pressure 148/74 02/18/19 13:51 O2 Sat by Pulse Oximetry (%) 97 02/18/19 13:51 Constitutional: Yes: Well Nourished, No Distress, Calm HENT: Yes: Atraumatic, Normocephalic Extremities: Yes: Other (right elbow: There is no swelling along the olecranon bursa. There is mild edema along the forearm and upper arm posteriorly. There is diffuse erythema which appears to be recessed from the marker line drawn by the emergency department. There is no palpable abscess. There is diffuse tenderness along the posterior elbow and arm. Full range of motion of the elbow. No instability. Neurovascularly intact distally) Labs: CBC, BMP 02/17/19 07:30 02/17/19 07:30 Imaging - Results X-ray: Report Reviewed, Image Reviewed (no evidence of osteomyelitis) Assessment/Plan #1 right elbow cellulitis without abscess formation I discussed today's findings and treatment options with the patient. no surgical intervention indicated at this time. I recommended continue IV antibiotics. I will reassess the elbow tomorrow.
--- NOTE | 2019-02-18 16:06 | PN ---
Progress Note, Physician History of Present Illness: cellulitis improving localization occurring - Current Medication List Current Medications: Active Medications Apixaban (Eliquis -) 5 mg PO BID [facility] Last Admin: 02/18/19 09:26 Dose: 5 mg Diltiazem HCl (Cardizem Cd -) 120 mg PO DAILY [facility] Last Admin: 02/18/19 09:26 Dose: 120 mg Clindamycin Phosphate (Cleocin 600 Mg Premix Ivpb -) 600 mg in 50 mls @ 100 mls /hr IVPB Q8H-IV L[facility]ETTE; Protocol Last Admin: 02/18/19 09:26 Dose: 100 mls/hr Ertapenem 1 gm/ Sodium (Chloride) 50 mls @ 100 mls/hr IVPB DAILY [facility] Metoprolol Tartrate (Lopressor -) 50 mg PO BID [facility] Last Admin: 02/18/19 09:26 Dose: 50 mg - Objective Vital Signs: Vital Signs Temperature 97.6 F 02/18/19 13:51 Pulse Rate 82 02/18/19 13:51 Respiratory Rate 19 02/18/19 13:51 Blood Pressure 148/74 02/18/19 13:51 O2 Sat by Pulse Oximetry (%) 97 02/18/19 13:51 Constitutional: Yes: No Distress, Calm Cardiovascular: Yes: S1, S2 Respiratory: Yes: Regular, CTA Bilaterally Gastrointestinal: Yes: Normal Bowel Sounds, Soft Musculoskeletal: Yes: WNL Extremities: Yes: Erythema, Other Neurological: Yes: Alert, Oriented Psychiatric: Yes: Alert, Oriented Labs: CBC, BMP 02/17/19 07:30 02/17/19 07:30 INR, PTT INR 1.19 (0.82-1.09) 02/16/19 18:15 Assessment/Plan 64 year-old male with a PMH significant for HTN, atrial fibrillation, diastolic heart failure, sustained alcohol use, and non-compliance. Admitted for cellulitis of right elbow, Cellulitis right elbow Hypertension Atrial fibrillation Diastolic heart failure Alcohol use plan continue abx monitor for localization rest as per the team
--- NOTE | 2019-02-18 22:58 | PN ---
Physical Exam: SUBJECTIVE: Patient seen and examined oob. OBJECTIVE: Vital Signs Period Temp Pulse Resp BP Sys/Quintero Pulse Ox Last 24 Hr 97.6 F-98.3 F 80-82 16-19 142-148/74-86 96-97 GENERAL: Awake, alert, and fully oriented, in no acute distress. HEAD: Normal with no signs of trauma. EYES: Pupils equal, round and reactive to light, extraocular movements intact, sclera anicteric, conjunctiva clear. LUNGS: Breath sounds equal, clear to auscultation bilaterally. No wheezes, and no crackles. No accessory muscle use. HEART: Irregular, S1, S2 RUE: erythema improving, receding from inked demarcation, area of fluctuance/ induration persists Active Medications Generic Name Dose Route Start Last Admin Trade Name Freq PRN Reason Stop Dose Admin Apixaban 5 mg 02/17/19 10:00 02/18/19 21:29 Eliquis - PO 5 mg BID L[facility]ETTE Administration Diltiazem HCl 120 mg 02/17/19 10:00 02/18/19 09:26 Cardizem Cd - PO 120 mg DAILY [facility] Administration Clindamycin Phosphate 600 mg in 50 mls @ 100 mls/hr 02/18/19 02:00 02/18/19 17:50 Cleocin 600 Mg Premix Ivpb - IVPB 100 mls/hr Q8H-IV [facility] Administration Protocol Metoprolol Tartrate 50 mg 02/16/19 22:00 02/18/19 21:29 Lopressor - PO 50 mg BID LISETTE Administration ASSESSMENT/PLAN 64 year-old male with a PMH significant for HTN, atrial fibrillation, diastolic heart failure, sustained alcohol use, and non-compliance. Admitted for cellulitis of right elbow, concern for possible septic joint. Cellulitis right elbow --ortho consult: no abscess formation, declined surgical intervention --on 02/17 patient had a hives reaction to aztreonam; discussed with Dr. Plunkett, will proceed with IV clinda only (had considered ertapenem but not given due to beta-lactam component) Hypertension --BP stable --continue metoprolol Atrial fibrillation --continue metoprolol, Eliquis, diltiazem Diastolic heart failure --01/23/18 CHRISTOPHER: LV mild to moderately reduced EF 40-45%, mild global hypokinesis; mild MR; mild AI; mild PI --not on home diuretics --BNP wnl Alcohol use --monitor for s/s of withdrawal FEN Fluids: PO intake adequate Electrolytes: replete as indicated Nutrition: low sodium DVT prophylaxis: on Eliquis Dispo: continues to require inpatient care. Full code. Visit type - Emergency Visit Emergency Visit: Yes ED Registration Date: 02/16/19 Care time: The patient presented to the Emergency Department on the above date and was hospitalized for further evaluation of their emergent condition. - New Patient This patient is new to me today: No - Critical Care Critical Care patient: No
[2019-02-19] MEDS: CLINDAMYCIN 600MG PREMIX IVPB 600 MG/50 ML BAG IVPB SCH ×3 (01:56→17:23)
[2019-02-19] MEDS: AZTREONAM 2 GM in DEXTROSE 5%-WATER 100 ML IVPB SCH ×2 (08:02→08:03)
[2019-02-19 08:29] LABS: CHOLESTEROL 269 mg/dl (50-200); HDL CHOLESTEROL 47 mg/dl (40-60); LDL CHOLESTEROL (ONLY DFH) 178 mg/dl (5-100); TRIGLYCERIDES 222 mg/dl (0-150)
[2019-02-19] MEDS: APIXABAN 5 MG TABLET PO SCH ×2 (09:55→21:33)
[2019-02-19] MEDS: METOPROLOL TARTRATE 50 MG TABLET (FP) PO SCH ×2 (09:55→21:33)
--- NOTE | 2019-02-19 10:18 | PN ---
Progress Note, Physician History of Present Illness: He is feeling a little better today. His pain is minimal. He denies any fevers or chills. - Current Medication List Current Medications: Active Medications Apixaban (Eliquis -) 5 mg PO BID [facility] Last Admin: 02/19/19 09:55 Dose: 5 mg Diltiazem HCl (Cardizem Cd -) 120 mg PO DAILY [facility] Last Admin: 02/19/19 09:55 Dose: 120 mg Clindamycin Phosphate (Cleocin 600 Mg Premix Ivpb -) 600 mg in 50 mls @ 100 mls /hr IVPB Q8H-IV [facility]; Protocol Last Admin: 02/19/19 09:54 Dose: 100 mls/hr Metoprolol Tartrate (Lopressor -) 50 mg PO BID [facility] Last Admin: 02/19/19 09:55 Dose: 50 mg - Objective Vital Signs: Vital Signs Temperature 97.4 F L 02/19/19 05:42 Pulse Rate 87 02/19/19 09:34 Respiratory Rate 16 02/19/19 09:34 Blood Pressure 142/79 02/19/19 09:34 O2 Sat by Pulse Oximetry (%) 97 02/19/19 09:35 Constitutional: Yes: Well Nourished, No Distress, Calm Musculoskeletal: Yes: Other (right elbow: The erythema seems to have receded compared to yesterday. I marked the area of erythema today with a marker. There is no palpable abscess. There is a little bit of thickening of the skin along the central area of erythema but the fluid seems more interstitial then a abscess. Full motion of the elbow. Neurovascularly intact.) Labs: CBC, BMP 02/17/19 07:30 02/17/19 07:30 INR, PTT INR 1.19 (0.82-1.09) 02/16/19 18:15 Assessment/Plan #1 right elbow cellulitis I have discussed today's findings and treatment options with the patient. I recommend continue antibiotics. Will reassess tomorrow. No indication for surgical intervention at this time.
--- NOTE | 2019-02-19 13:09 | PN ---
Progress Note, Physician History of Present Illness: improving still with swelling and induration - Current Medication List Current Medications: Active Medications Apixaban (Eliquis -) 5 mg PO BID [facility] Last Admin: 02/19/19 09:55 Dose: 5 mg Diltiazem HCl (Cardizem Cd -) 120 mg PO DAILY [facility] Last Admin: 02/19/19 09:55 Dose: 120 mg Clindamycin Phosphate (Cleocin 600 Mg Premix Ivpb -) 600 mg in 50 mls @ 100 mls /hr IVPB Q8H-IV [facility]; Protocol Last Admin: 02/19/19 09:54 Dose: 100 mls/hr Metoprolol Tartrate (Lopressor -) 50 mg PO BID [facility] Last Admin: 02/19/19 09:55 Dose: 50 mg - Objective Vital Signs: Vital Signs Temperature 97.4 F L 02/19/19 05:42 Pulse Rate 87 02/19/19 09:34 Respiratory Rate 16 02/19/19 09:34 Blood Pressure 142/79 02/19/19 09:34 O2 Sat by Pulse Oximetry (%) 97 02/19/19 09:35 Constitutional: Yes: No Distress, Calm Cardiovascular: Yes: S1, S2 Respiratory: Yes: Regular, CTA Bilaterally Gastrointestinal: Yes: Normal Bowel Sounds, Soft Musculoskeletal: Yes: WNL Extremities: Yes: Erythema (of the elbow), Other Neurological: Yes: Alert, Oriented Psychiatric: Yes: Alert, Oriented Labs: CBC, BMP 02/17/19 07:30 02/17/19 07:30 INR, PTT INR 1.19 (0.82-1.09) 02/16/19 18:15 Assessment/Plan 64 year-old male with a PMH significant for HTN, atrial fibrillation, diastolic heart failure, sustained alcohol use, and non-compliance. Admitted for cellulitis of right elbow, Cellulitis right elbow Hypertension Atrial fibrillation Diastolic heart failure Alcohol use plan continue abx monitor for localization u/s of the elbow to see for collection rest as per the team
--- NOTE | 2019-02-19 16:43 | PN ---
Physical Exam: SUBJECTIVE: Patient seen and examined oob to chair. OBJECTIVE: Vital Signs Period Temp Pulse Resp BP Sys/Qunitero Pulse Ox Last 24 Hr 97.4 F-98.2 F 61-87 16-18 125-143/54-85 94-97 GENERAL: Awake, alert, and fully oriented, in no acute distress. HEAD: Normal with no signs of trauma. EYES: Pupils equal, round and reactive to light, extraocular movements intact, sclera anicteric, conjunctiva clear. LUNGS: Breath sounds equal, clear to auscultation bilaterally. No wheezes, and no crackles. No accessory muscle use. HEART: Irregular, S1, S2 RUE: erythema improving, receding from inked demarcation, area of fluctuance/ induration persists Laboratory Results - last 24 hr 02/19/19 02/19/19 07:20 07:20 Hemoglobin A1c % 6.2 Triglycerides 222 H Cholesterol 269 H Total LDL Cholesterol 178 H HDL Cholesterol 47 Active Medications Generic Name Dose Route Start Last Admin Trade Name Freq PRN Reason Stop Dose Admin Apixaban 5 mg 02/17/19 10:00 02/19/19 09:55 Eliquis - PO 5 mg BID LISETTE Administration Diltiazem HCl 120 mg 02/17/19 10:00 02/19/19 09:55 Cardizem Cd - PO 120 mg DAILY LISETTE Administration Clindamycin Phosphate 600 mg in 50 mls @ 100 mls/hr 02/18/19 02:00 02/19/19 09:54 Cleocin 600 Mg Premix Ivpb - IVPB 100 mls/hr Q8H-IV LISETTE Administration Protocol Metoprolol Tartrate 50 mg 02/16/19 22:00 02/19/19 09:55 Lopressor - PO 50 mg BID LISETTE Administration ASSESSMENT/PLAN: 64 year-old male with a PMH significant for HTN, atrial fibrillation, diastolic heart failure, sustained alcohol use, and non-compliance. Admitted for cellulitis of right elbow, concern for possible septic joint. Cellulitis right elbow --on 02/17 patient had a hives reaction to aztreonam; narrowed treatment to clinda only --area of fluctuance, induration continues to localize, will get US to r/o abscess Hypertension --BP stable --continue metoprolol Atrial fibrillation --continue metoprolol, Eliquis, diltiazem Diastolic heart failure --01/23/18 CHRISTOPHER: LV mild to moderately reduced EF 40-45%, mild global hypokinesis; mild MR; mild AI; mild PI --not on home diuretics --BNP wnl Alcohol use --monitor for s/s of withdrawal FEN Fluids: PO intake adequate Electrolytes: replete as indicated Nutrition: low sodium DVT prophylaxis: on Eliquis Dispo: continues to require inpatient care. Full code. Visit type - Emergency Visit Emergency Visit: Yes ED Registration Date: 02/16/19 Care time: The patient presented to the Emergency Department on the above date and was hospitalized for further evaluation of their emergent condition. - New Patient This patient is new to me today: No - Critical Care Critical Care patient: No
[2019-02-20] MEDS: CLINDAMYCIN 600MG PREMIX IVPB 600 MG/50 ML BAG IVPB SCH ×2 (02:11→10:59)
[2019-02-20] MEDS: APIXABAN 5 MG TABLET PO SCH (10:59)
[2019-02-20] MEDS: METOPROLOL TARTRATE 50 MG TABLET (FP) PO SCH (11:00)
--- NOTE | 2019-02-20 11:30 | PN ---
Progress Note (short form) - Note Progress Note: 64 yo M admitted to hospital for right elbow pain and swelling, probable cellulitis vs abscess. Patient lying comfortably in bed. States pain and warmth are improved since yesterday. Denies any fever, chills or any overnight events. Last Vital Signs Temp Pulse Resp BP Pulse Ox 98.0 F 84 18 130/84 94 L 02/20/19 06:00 02/20/19 06:00 02/20/19 06:00 02/20/19 06:00 02/20/19 01:56 PE: Right elbow Erythema contained in pen mojica made by ANATOLIY Chiang yesterday Mild warmth No area of fluctuance Minimal puckering of skin Full painless ROM of elbow NVID A: probable cellulitis of right elbow P: Improving symptoms of right elbow pain, warmth and redness with painless ROM Continue antibiotics US ordered to r/o abscess No surgical intervention needed at this time
--- NOTE | 2019-02-20 16:27 | DS ---
Physical Exam: SUBJECTIVE: Patient seen and examined OBJECTIVE: Vital Signs Period Temp Pulse Resp BP Sys/Quintero Pulse Ox Last 24 Hr 97.6 F-98.3 F 66-84 18-19 121-136/70-84 94-97 PHYSICAL EXAM GENERAL: The patient is awake, alert, and fully oriented, in no acute distress. HEAD: Normal with no signs of trauma. EYES: PERRL, extraocular movements intact, sclera anicteric, conjunctiva clear. ENT: Ears normal, nares patent, oropharynx clear without exudates, moist mucous membranes. NECK: Trachea midline, full range of motion, supple. LUNGS: Breath sounds equal, clear to auscultation bilaterally, no wheezes, no crackles, no accessory muscle use. HEART: Regular rate and rhythm, S1, S2 without murmur, rub or gallop. ABDOMEN: Soft, nontender, nondistended, normoactive bowel sounds, no guarding, no rebound, no hepatosplenomegaly, no masses. EXTREMITIES: 2+ pulses, warm, well-perfused, no edema. NEUROLOGICAL: Cranial nerves II through XII grossly intact. Normal speech, gait not observed. PSYCH: Normal mood, normal affect. SKIN: Warm, dry, normal turgor, no rashes or lesions noted. LABS HOSPITAL COURSE: Date of Admission:02/16/19 Date of Discharge: 02/20/19 Pre hospital course 64 year-old male with a PMH significant for HTN, atrial fibrillation, diastolic heart failure, sustained alcohol use, and non-compliance. Presented to the ED for evaluation of right elbow pain, swelling, and redness. Patient was on a cruise from mid-December to mid-January. Toward the end of December, after leaving [place] and en route to [place], he developed a lump on his right elbow. It was soft, "squishy", not red, and not hot. He did not seek medical care during his trip. After his return, on or about 01/28, he banged the elbow and the lump turned black. About a week after that, the elbow became red, hot, swollen, and painful. Patient self-treated by taking large amounts of Advil. Four days ago patient finally sought medical care at an urgent care center and was started on clindamycin. Yesterday, he had several episodes of sweats and chills. He had a visit with his orthopedist who suggested he come to the ED. ER course (1) WBC wnl, afebrile (2) lactic acid wnl Subsequent hospital course Cellulitis right elbow --started on Vanc and aztreonam but had hives reaction to aztreonam --antibiotics limited to IV clinda with good response, improvement in erythema and swelling, but small area of fluctuance remains at time of discharge --continued on PO clinda on discharge with close followup with ortho and with ID next Saturday Hypertension --BP remained stable --continued metoprolol Atrial fibrillation --continued metoprolol, Eliquis, diltiazem Diastolic heart failure --01/23/18 CHRISTOPHER: LV mild to moderately reduced EF 40-45%, mild global hypokinesis; mild MR; mild AI; mild PI --not on home diuretics Alcohol use --no s/s of withdrawal Minutes to complete discharge: 35 Discharge Summary Problems reviewed: Yes Reason For Visit: CELLULITIS OF RIGHT UPPER EXTREMITY Current Active Problems Right arm cellulitis (Acute) Condition: Improved - Instructions Diet, Activity, Other Instructions: A prescription has been sent to your pharmacy for clindamycin. Take this medication as directed and do not stop taking until Dr. Plunkett instructs you otherwise. You need to see both Dr. Plunkett (infectious disease) and Dr. Brito (orthopedics) on 02/24/19. Both have office hours on that day. We were unable to make appointments for you today and their offices are now closed. Call both their offices on Saturday and make an appointment for the next day. If you have any difficulty, tell the office to call MELINA Casey at [phone] or [phone] and I will explain the situation. Return to the emergency room for any new or worsening symptoms. Referrals: Fabian Brito MD [Staff Physician] - 02/24/19 12:00 am Heydi Plunkett MD [Staff Physician] - 02/24/19 12:00 am Disposition: HOME - Home Medications Comprehensive Discharge Medication List: Ambulatory Orders Apixaban [Eliquis -] 5 mg PO BID #60 tablet 01/16/18 Diltiazem Cd [Cardizem Cd -] 120 mg PO DAILY #30 cap.cd.24h 01/16/18 Clindamycin HCl 300 mg PO TID #42 capsule 02/20/19 Metoprolol Tartrate [Lopressor -] 50 mg PO BID tablet 02/20/19 This patient is new to me today: No Emergency Visit: Yes ED Registration Date: 02/16/19 Care time: The patient presented to the Emergency Department on the above date and was hospitalized for further evaluation of their emergent condition. Critical Care patient: No - Discharge Referral Referred to [facility] No
[2019-02-20 16:45] VITALS: BP 132/71; PULSE 82; TEMP 98
--- NOTE | 2019-02-21 09:43 | PN ---
Progress Note, Physician History of Present Illness: stable u/s result noted swelling and erythema of the hand better - Objective Vital Signs: Vital Signs Temperature 98 F 02/20/19 16:44 Pulse Rate 82 02/20/19 16:44 Respiratory Rate 16 02/20/19 16:44 Blood Pressure 132/71 02/20/19 16:44 O2 Sat by Pulse Oximetry (%) 97 02/20/19 14:28 Constitutional: Yes: No Distress, Calm Gastrointestinal: Yes: Normal Bowel Sounds, Soft Musculoskeletal: Yes: WNL Extremities: Yes: Erythema (improved), Other Neurological: Yes: Alert, Oriented Psychiatric: Yes: Alert, Oriented Labs: CBC, BMP 02/17/19 07:30 02/17/19 07:30 INR, PTT INR 1.19 (0.82-1.09) 02/16/19 18:15 Assessment/Plan 64 year-old male with a PMH significant for HTN, atrial fibrillation, diastolic heart failure, sustained alcohol use, and non-compliance. Admitted for cellulitis of right elbow, Cellulitis right elbow Hypertension Atrial fibrillation Diastolic heart failure Alcohol use plan continue abx u/s result noted might need to drain will leave it up to ortho
== END 2019-02-20 17:04 | disposition home or self-care (01) | DRG 603 ==
LOC: FER 16:01 → FM/S 18:22
PROVIDERS: ADMIT Internal Medicine; ATTEND Nurse Practitioner Acute Care
DX: L03.113 Cellulitis of right upper limb (principal); I50.32 Chronic diastolic (congestive) heart failure; I11.0 Hypertensive heart disease with heart failure; E66.01 Morbid (severe) obesity due to excess calories; Z68.39 Body mass index [BMI] 39.0-39.9, adult; I48.91 Unspecified atrial fibrillation; E78.5 Hyperlipidemia, unspecified; Z79.01 Long term (current) use of anticoagulants; Z88.0 Allergy status to penicillin; Z87.891 Personal history of nicotine dependence
CPT/HCPCS: 36415; 71046-TC-FY; 73070-TC-RT-FY; 76882-TC-RT-FY; 80053; 80061; 83036; 83605; 83735; 83880; 85025; 85610; 85730; 87040; 93005; 99283-25

== ENCOUNTER 2019-03-19 06:02 | Day surgery (SDC) | payer OTHER, MEDICARE ==
[2019-03-17 17:46] VITALS: BMI 36.1
[2019-03-19] MEDS ORDERED: PROPOFOL 20 ML ONE (07:16)
[2019-03-19] MEDS ORDERED: MIDAZOLAM HCL 2 MG/2 ML SINGLE DOSE VIAL ONE (07:16)
[2019-03-19] MEDS ORDERED: SUCCINYLCHOLINE CHLORIDE 200 MG/10 ML SYRINGE ONE (07:17)
[2019-03-19] MEDS ORDERED: BUPIVACAINE HCL 0.25% 125 MG/50 ML VIAL ONE (07:33)
[2019-03-19] MEDS ORDERED: EPHEDRINE SULFATE/0.9% NACL/PF 50 MG/10 ML SYRINGE NR ONE (07:59)
[2019-03-19] MEDS ORDERED: CLINDAMYCIN PHOSPHATE 600 MG/4 ML VIAL ONE (08:21)
[2019-03-19] MEDS ORDERED: BUPIVACAINE HCL/PF 0.25% (2.5MG/ML) 10 ML VIAL IJ ONE (08:35)
[2019-03-19] MEDS ORDERED: ONDANSETRON 4 MG/2 ML VIAL ONE (09:07)
[2019-03-19] MEDS ORDERED: ONDANSETRON 4 MG/2 ML VIAL IVPUSH PRN (09:11)
[2019-03-19] MEDS ORDERED: PROMETHAZINE HCL 25 MG/1 ML VIAL IVPUSH PRN (09:11)
[2019-03-19] MEDS ORDERED: oxyCODONE HCL 5 MG TABLET PO PRN ×2 (09:11)
[2019-03-19 09:33] VITALS: TEMP 97.4
[2019-03-19] MEDS ORDERED: oxyCODONE HCL 5 MG TABLET ONE (10:26)
[2019-03-19 10:50] VITALS: BP 112/65; PULSE 66
--- NOTE | 2019-03-19 14:47 | OP ---
DATE OF OPERATION: 03/19/2019 PREOPERATIVE DIAGNOSIS: Right elbow septic olecranon bursa. POSTOPERATIVE DIAGNOSIS: Right elbow septic olecranon bursa. OPERATIVE PROCEDURE: 1. Incision and drainage, right elbow. 2. Right olecranon bursectomy. SURGEON: Chico Garcia MD WRAPPER STRIPPER: ANATOLIY Martínez ANESTHESIA: General. COMPLICATIONS: None. ESTIMATED BLOOD LOSS: Minimal. INDICATION FOR PROCEDURE: The patient is a 64-year-old male with the above finding, indicative for operative treatment. Risks, benefits, and alternatives were discussed with patient at length. Proper informed consent was obtained. DESCRIPTION OF PROCEDURE: After proper identification of patient and correct operative site, patient was brought to the operating room and placed supine on the table. All bony prominences were well padded. General anesthesia was given. Right upper extremity was prepped and draped in usual sterile fashion. Well-padded tourniquet was placed as well as a sterile prep. Arm was elevated, and a tourniquet was inflated to 250 mmHg. The area of maximal induration was ellipsed out in a longitudinal fashion. This included a bursectomy. This was sent for pathological evaluation. The area was then cultured and thoroughly irrigated and debrided. Full-thickness flaps were elevated, and the skin was repaired including the subcutaneous tissues in a 3-0 Vicryl suture as well as skin alex. Sterile dressings were applied. Splint was placed. Patient was reversed from anesthesia and brought to Recovery in stable condition. Bhavik Chiang, the city carrier assistant, was integral throughout the procedure. Procedure could not have been performed without a skilled operative city carrier assistant. Of note, there was a significant amount of inflammatory and necrotic tissue, but no focal evidence of abscess. There was no involvement of the bone as could be seen with the surgery. CHICO GARCIA M.D. [id number]
--- NOTE | 2019-03-23 13:19 | PATH ---
Surgical Pathology Report Patient Name: DEBORAH CAM Med. Rec. #: [id number] /Age/Gender: 1955 (Age: 64) / M Account: [id number] Location: [facility] AMBULATORY Taken: 03/19/2019 Received: 03/19/2019 Reported: 03/23/2019 Physicians: Fabian Brito M.D. Specimen(s) Received RIGHT ELBOW SKIN AND SUBCUTANEOUS TISSUE Clinical History Right elbow/forearm cellulitis Final Diagnosis SKIN AND SOFT TISSUE, RIGHT ELBOW, EXCISION: SKIN WITH DERMAL FIBROSIS AND SCLEROSIS, WITH ASSOCIATED ACUTE AND CHRONIC INFLAMMATION. Electronically Signed Steve Garcia M.D. Gross Description Received in formalin labeled "right elbow skin and subcutaneous tissue," is a 4.3 x 0.6 cm alexis, elliptical, unoriented portion of skin excised to a depth of 0.7 cm. No discrete epidermal lesion is identified. Health Unit Supervisor sections are submitted in one cassette. /03/20/2019 saudi/03/20/2019
== END 2019-03-19 10:55 | disposition home or self-care (01) ==
LOC: FASU 06:02
PROVIDERS: ATTEND Orthopaedic Surgery Hand Surgery
PROC: 0M930ZZ Drainage of Right Elbow Bursa and Ligament, Open Approach (ICD-10-PCS; 2019-03-19)
PROC: 0MB30ZZ Excision of Right Elbow Bursa and Ligament, Open Approach (ICD-10-PCS; principal; 2019-03-19 08:09)
DX: M71.121 Other infective bursitis, right elbow (principal); L90.5 Scar conditions and fibrosis of skin; L94.0 Localized scleroderma [morphea]
CPT/HCPCS: 87070; 87205; 88304-TC; 94760